=== PATIENT | male | born 1960 | race Caucasian/White ===

== ENCOUNTER 2016-12-06 22:42 | Inpatient (IN) | payer MEDICAID ==
[~2016-12-06] VITALS: Ht 200.7 cm; Wt 138.6 kg
[2016-12-07] MEDS ORDERED: HYDROmorphone HCL 2 MG/ML VL IV ONE ×2 (00:15→04:30)
[2016-12-07] MEDS ORDERED: SODIUM CHLORIDE 0.9% 1,000 ML IV ONE (00:15)
[2016-12-07] MEDS ORDERED: ONDANSETRON HCL 4 MG/2 ML VIAL IV ONE ×2 (00:15→04:30)
[2016-12-07 00:18] LABS: Basophils # (auto) 0.5 uL; Basophils % (auto) 2.6 % (0.0-2.0); DEFINITIVE VIEW TRANSMISSION; Eosinophils # (auto) 0 uL; Eosinophils % (auto) 0.2 % (0.0-7.0); Hematocrit 44.9 % (41.0-53.0); Hemoglobin 14.8 g/dL (13.5-17.5); Lymphocytes # (auto) 1.9 uL; Lymphocytes % (auto) 10.2 % (10.0-50.0); Mean Corpuscular Hemoglobin 29.2 pg (28.0-32.0); Mean Corpuscular Hgb Conc. 32.8 g/dL (32.0-36.0); Mean Platelet Volume 9.6 fL (7.4-10.4); Monocytes # (auto) 1.8 uL; Monocytes % (auto) 9.7 % (0.0-12.0); Neutrophils # (auto) 14.7 uL; Neutrophils % (auto) 77.3 % (37.0-80.0); Platelet Count (auto) 248 10^3/uL (140-450); Red Cell Distribution Width 12.1 % (11.6-16.0); SUSPECT VIEW TRANSMISSION; White Blood Cell 18.9 10^3/uL (4.4-10.8)
[2016-12-07 00:35] LABS: Albumin 2.8 g/dL (3.4-5.0); BUN/Creatinine Ratio 14.2; Calcium 9.4 mg/dL (8.5-10.1); Potassium 4.1 mmol/L (3.5-5.1)
[2016-12-07 00:37] LABS: Bilirubin, Total 0.5 mg/dL (0.2-1.0)
[2016-12-07] MEDS ORDERED: VANCOMYCIN 1GM/250ML D5W 250 ML IV ONE (00:45)
[2016-12-07] MEDS ORDERED: cefTRIAXone 1GM/50ML D5W 50 ML IV ONE (00:45)
[2016-12-07] MEDS ORDERED: ACETAMINOPHEN 325 MG TAB PO ONE (00:45)
[2016-12-07] MEDS ORDERED: cefTRIAXone SOD 1,000 MG VL ONE (00:50)
[2016-12-07] MEDS ORDERED: LACTULOSE 20Gm/30ML SOLN PO PRN (06:45)
[2016-12-07] MEDS ORDERED: ACETAMINOPHEN 500 MG TAB PO PRN (06:45)
[2016-12-07] MEDS ORDERED: TEMAZEPAM 15 MG CAP PO PRN (06:45)
[2016-12-07] MEDS ORDERED: PROCHLORPERAZINE EDISYLATE 5 MG/ML 2ML VIAL IV PRN (06:45)
[2016-12-07] MEDS ORDERED: DEXTROSE (50%) 50ML SYRG IV PRN (06:45)
[2016-12-07] MEDS ORDERED: LORazepam 0.5 MG TAB PO PRN (06:45)
[2016-12-07] MEDS ORDERED: HYDROcodone-ACET 5/325MG TAB PO PRN (06:45)
[2016-12-07] MEDS ORDERED: MORPHINE SULF INJ 2 MG/ML SYRINGE 1ML IV PRN (06:45)
[2016-12-07] MEDS: InsuLIN REG 1unit/0.01ml Soln (100units/ml) SC SCH ×4 (07:39→21:51)
[2016-12-07] MEDS: ACCU-CHEK COMFORT CURVE STRIP VI SCH ×4 (07:39→21:50)
[2016-12-07] MEDS: SODIUM CHLORIDE 0.9% 1,000 ML IV SCH ×2 (07:40→17:19)
[2016-12-07 08:00] VITALS: BP 124/72
[2016-12-07 08:30] VITALS: BP 124/72
[2016-12-07] MEDS: cefTRIAXone 1GM/50ML D5W 50 ML IV SCH (09:06)
[2016-12-07] MEDS: ENOXAPARIN SOD 40 MG/0.4 ML SYRINGE SC SCH (09:06)
[2016-12-07 12:43] VITALS: BP 119/72
[2016-12-07] MEDS: CLINDAMYCIN 600MG IV 50 ML IV SCH ×2 (13:25→21:50)
[2016-12-07 13:50] LABS: Urine Bilirubin Negative (Negative); Urine Blood TRACE /uL (Negative); Urine Color Yellow (Yellow); Urine Glucose Normal (Normal); Urine Ketone Negative (Negative); Urine Mucus FEW (None Seen); Urine Nitrite Negative (Negative); Urine RBC 4 /hpf (0 - 3); Urine Squamous Epithelial Cell FEW /hpf (<5); Urine Urobilinogen Normal (Negative)
[2016-12-07 15:40] LABS: INR 1.13 (0.9-1.15); Prothrombin Time 12.2 sec (9.37-12.3)
[2016-12-07] MEDS: HYDROmorphone HCL 2 MG/ML VL IV PRN ×2 (15:59→21:09)
[2016-12-07 17:00] VITALS: BP 136/75
[2016-12-07 21:30] VITALS: BP 117/66
[2016-12-08] MEDS: SODIUM CHLORIDE 0.9% 1,000 ML IV SCH ×2 (02:17→12:42)
[2016-12-08] MEDS: HYDROmorphone HCL 2 MG/ML VL IV PRN ×5 (02:18→21:37)
[2016-12-08 05:00] VITALS: BP 117/74
[2016-12-08] MEDS: InsuLIN REG 1unit/0.01ml Soln (100units/ml) SC SCH ×4 (06:20→22:35)
[2016-12-08] MEDS: CLINDAMYCIN 600MG IV 50 ML IV SCH ×2 (06:20→12:43)
[2016-12-08] MEDS: ACCU-CHEK COMFORT CURVE STRIP VI SCH ×4 (06:20→21:37)
[2016-12-08 06:31] LABS: Basophils # (auto) 0 uL; Basophils % (auto) 0.3 % (0.0-2.0); Eosinophils # (auto) 0.1 uL; Eosinophils % (auto) 0.6 % (0.0-7.0); Hematocrit 37.2 % (41.0-53.0); Hemoglobin 12.2 g/dL (13.5-17.5); Lymphocytes # (auto) 1.3 uL; Lymphocytes % (auto) 9.7 % (10.0-50.0); Mean Corpuscular Hemoglobin 29.5 pg (28.0-32.0); Mean Corpuscular Hgb Conc. 32.8 g/dL (32.0-36.0); Mean Corpuscular Volume 89.9 fL (80.0-100.0); Mean Platelet Volume 9.6 fL (7.4-10.4); Monocytes # (auto) 1.4 uL; Monocytes % (auto) 10.7 % (0.0-12.0); Neutrophils # (auto) 10.4 uL; Neutrophils % (auto) 78.7 % (37.0-80.0); Platelet Count (auto) 216 10^3/uL (140-450); Red Cell Distribution Width 13.6 % (11.6-16.0); White Blood Cell 13.2 10^3/uL (4.4-10.8)
[2016-12-08 07:14] LABS: Albumin 2.3 g/dL (3.4-5.0); Bilirubin, Total 0.3 mg/dL (0.2-1.0); Calcium 8.1 mg/dL (8.5-10.1); Potassium 4.6 mmol/L (3.5-5.1); Total Protein 6.7 g/dL (6.4-8.2)
[2016-12-08 07:30] VITALS: BP 124/72
[2016-12-08 08:43] VITALS: BP 155/86
[2016-12-08] MEDS: cefTRIAXone 1GM/50ML D5W 50 ML IV SCH (09:59)
[2016-12-08] MEDS: ENOXAPARIN SOD 40 MG/0.4 ML SYRINGE SC SCH (09:59)
[2016-12-08 13:00] VITALS: BP 126/89
[2016-12-08 17:00] VITALS: BP 125/81
[2016-12-08] MEDS ORDERED: VANCOMYCIN PER PHARMACY 0 MG IV SCH (17:00)
[2016-12-08] MEDS: VANCOMYCIN 1,500 MG in D5W 5% 250 ML IV SCH (21:37)
[2016-12-08 22:00] VITALS: BP 129/86
[2016-12-09] VITALS (8 sets, daily range): BP systolic 128–167; BP diastolic 66–103
[2016-12-09] MEDS: HYDROmorphone HCL 2 MG/ML VL IV PRN ×5 (01:29→21:51)
[2016-12-09] MEDS: SODIUM CHLORIDE 0.9% 1,000 ML IV SCH ×3 (01:30→18:05)
[2016-12-09 06:18] LABS: Basophils # (auto) 0 uL; Basophils % (auto) 0.3 % (0.0-2.0); Eosinophils # (auto) 0.4 uL; Eosinophils % (auto) 4.9 % (0.0-7.0); Hematocrit 35.8 % (41.0-53.0); Hemoglobin 11.9 g/dL (13.5-17.5); Lymphocytes # (auto) 1.2 uL; Lymphocytes % (auto) 13.7 % (10.0-50.0); Mean Corpuscular Hemoglobin 29.8 pg (28.0-32.0); Mean Corpuscular Hgb Conc. 33.4 g/dL (32.0-36.0); Mean Corpuscular Volume 89.3 fL (80.0-100.0); Mean Platelet Volume 9.1 fL (7.4-10.4); Monocytes # (auto) 0.9 uL; Monocytes % (auto) 10.4 % (0.0-12.0); Neutrophils # (auto) 6.4 uL; Neutrophils % (auto) 70.7 % (37.0-80.0); Platelet Count (auto) 235 10^3/uL (140-450); Red Cell Distribution Width 13.6 % (11.6-16.0)
[2016-12-09 06:45] LABS: BUN/Creatinine Ratio 22.6; Calcium 8.1 mg/dL (8.5-10.1); Potassium 4.3 mmol/L (3.5-5.1)
[2016-12-09] MEDS: ACCU-CHEK COMFORT CURVE STRIP VI SCH ×4 (06:49→21:59)
[2016-12-09] MEDS: VANCOMYCIN 1,500 MG in D5W 5% 250 ML IV SCH ×2 (06:49→18:13)
[2016-12-09] MEDS: InsuLIN REG 1unit/0.01ml Soln (100units/ml) SC SCH ×4 (06:52→22:00)
[2016-12-09] MEDS ORDERED: CEFTRIAXONE SODIUM 2 GM in D5W 5% 50 ML IV SCH (10:00)
[2016-12-09] MEDS: ENOXAPARIN SOD 40 MG/0.4 ML SYRINGE SC SCH (13:32)
[2016-12-10] MEDS: HYDROmorphone HCL 2 MG/ML VL IV PRN ×4 (02:14→20:09)
[2016-12-10 05:14] VITALS: BP 134/75
[2016-12-10] MEDS: SODIUM CHLORIDE 0.9% 1,000 ML IV SCH ×2 (05:27→14:42)
[2016-12-10] MEDS: ACCU-CHEK COMFORT CURVE STRIP VI SCH ×4 (06:18→21:38)
[2016-12-10] MEDS: InsuLIN REG 1unit/0.01ml Soln (100units/ml) SC SCH ×4 (06:24→21:39)
[2016-12-10 06:30] LABS: Basophils # (auto) 0 uL; Basophils % (auto) 0.3 % (0.0-2.0); Eosinophils # (auto) 0.4 uL; Eosinophils % (auto) 5.4 % (0.0-7.0); Hematocrit 35.9 % (41.0-53.0); Hemoglobin 11.9 g/dL (13.5-17.5); Lymphocytes # (auto) 1.1 uL; Lymphocytes % (auto) 15.7 % (10.0-50.0); Mean Corpuscular Hemoglobin 29.5 pg (28.0-32.0); Mean Corpuscular Hgb Conc. 33.2 g/dL (32.0-36.0); Mean Corpuscular Volume 88.8 fL (80.0-100.0); Mean Platelet Volume 9.1 fL (7.4-10.4); Monocytes # (auto) 0.8 uL; Monocytes % (auto) 10.5 % (0.0-12.0); Neutrophils # (auto) 4.9 uL; Neutrophils % (auto) 68.1 % (37.0-80.0); Platelet Count (auto) 254 10^3/uL (140-450); Red Cell Distribution Width 12.9 % (11.6-16.0); White Blood Cell 7.2 10^3/uL (4.4-10.8)
[2016-12-10 06:53] LABS: Potassium 4.1 mmol/L (3.5-5.1)
[2016-12-10 07:00] LABS: Albumin 2.2 g/dL (3.4-5.0); BUN/Creatinine Ratio 19.5; Bilirubin, Total 0.4 mg/dL (0.2-1.0); Calcium 7.9 mg/dL (8.5-10.1); Total Protein 6.3 g/dL (6.4-8.2)
[2016-12-10] MEDS: VANCOMYCIN 1,500 MG in D5W 5% 250 ML IV SCH ×2 (08:09→18:44)
[2016-12-10 09:00] VITALS: BP 143/91
[2016-12-10] MEDS: ENOXAPARIN SOD 40 MG/0.4 ML SYRINGE SC SCH (10:00)
[2016-12-10 10:21] LABS: INR 0.99 (0.9-1.15); Partial Thromboplastin Time 28.7 sec (22.64-33.71); Prothrombin Time 10.7 sec (9.37-12.3)
[2016-12-10] MEDS: CEFTRIAXONE SODIUM 2 GM in D5W 5% 50 ML IV SCH (10:51)
[2016-12-10 13:00] VITALS: BP 134/73
[2016-12-10] MEDS ORDERED: ceFAZolin 1GM/50ML D5W 50 ML IV ONE (14:05)
[2016-12-10] MEDS ORDERED: PROPOFOL 10 MG/ML 20 ML IV ONE (15:04)
[2016-12-10] MEDS ORDERED: SODIUM CHLORIDE LOCK 20 ML ONE (15:04)
[2016-12-10] MEDS ORDERED: MIDAZOLAM HCL 1MG/1ML-2 ML VIAL ONE (15:04)
[2016-12-10] MEDS ORDERED: SUCCINYLCHOLINE CHLORIDE 20 MG/ML 10ML VIAL IV ONE (15:10)
[2016-12-10] MEDS ORDERED: fentaNYL CITRATE 100 MCG/2 ML VL ONE (15:37)
[2016-12-10] MEDS ORDERED: ACCU-CHEK COMFORT CURVE STRIP VI ONE (15:45)
[2016-12-10] MEDS ORDERED: METOCLOPRAMIDE HCL 5MG/ml INJ 2ml VIAL IV ONE (15:45)
[2016-12-10] MEDS ORDERED: HYDROmorphone HCL 2 MG/ML VL IV PRN (15:45)
[2016-12-10] MEDS ORDERED: LISI10TA6 PO (18:05)
[2016-12-10] MEDS ORDERED: GLIM4TAB42 PO (18:05)
[2016-12-10 22:00] VITALS: BP 153/93
[2016-12-11] MEDS: SODIUM CHLORIDE 0.9% 1,000 ML IV SCH ×4 (00:42→21:53)
[2016-12-11] MEDS: HYDROmorphone HCL 2 MG/ML VL IV PRN ×6 (01:04→20:48)
[2016-12-11 05:00] VITALS: BP 158/97
[2016-12-11] MEDS: VANCOMYCIN 1,500 MG in D5W 5% 250 ML IV SCH ×2 (06:27→18:52)
[2016-12-11] MEDS: ACCU-CHEK COMFORT CURVE STRIP VI SCH ×4 (06:27→21:46)
[2016-12-11] MEDS: InsuLIN REG 1unit/0.01ml Soln (100units/ml) SC SCH ×4 (06:35→21:46)
[2016-12-11] MEDS: ENOXAPARIN SOD 40 MG/0.4 ML SYRINGE SC SCH (09:43)
[2016-12-11] MEDS: CEFTRIAXONE SODIUM 2 GM in D5W 5% 50 ML IV SCH (09:44)
[2016-12-11 10:56] VITALS: BP 155/78
[2016-12-11] MEDS ORDERED: LIDOCAINE 1% HCL (LOCAL ANESTH.) INJ 20ML MDV ID ONE (11:15)
[2016-12-11 15:18] VITALS: BP 150/9
[2016-12-11 17:39] VITALS: BP 167/80
[2016-12-11 21:34] VITALS: BP 157/94
[2016-12-11] MEDS: SODIUM CHLOR 0.9% PF (SALINE LOCK) 10ML VIAL IV SCH (21:46)
[2016-12-12] MEDS: HYDROmorphone HCL 2 MG/ML VL IV PRN ×6 (00:57→23:55)
[2016-12-12 05:27] VITALS: BP 153/80
[2016-12-12] MEDS: VANCOMYCIN 1,500 MG in D5W 5% 250 ML IV SCH ×2 (06:33→18:24)
[2016-12-12] MEDS: InsuLIN REG 1unit/0.01ml Soln (100units/ml) SC SCH ×4 (06:48→21:40)
[2016-12-12] MEDS: ACCU-CHEK COMFORT CURVE STRIP VI SCH ×4 (06:48→21:40)
[2016-12-12 09:00] VITALS: BP 165/96
[2016-12-12] MEDS: ENOXAPARIN SOD 40 MG/0.4 ML SYRINGE SC SCH (09:23)
[2016-12-12] MEDS: SODIUM CHLOR 0.9% PF (SALINE LOCK) 10ML VIAL IV SCH ×2 (09:23→21:40)
[2016-12-12] MEDS: CEFTRIAXONE SODIUM 2 GM in D5W 5% 50 ML IV SCH (10:07)
[2016-12-12] MEDS ORDERED: LISINOPRIL 10 MG TAB PO ONE (12:00)
[2016-12-12 12:26] VITALS: BP 132/78
[2016-12-12 13:00] VITALS: BP 132/78
[2016-12-12 17:00] VITALS: BP 157/99
[2016-12-12 21:51] VITALS: BP 161/101
[2016-12-12] MEDS: amLODIPine BESYLATE 5 MG TAB PO SCH (22:46)
[2016-12-13] MEDS: HYDROmorphone HCL 2 MG/ML VL IV PRN ×5 (04:07→20:35)
[2016-12-13 04:43] VITALS: BP 164/103
[2016-12-13] MEDS: ACCU-CHEK COMFORT CURVE STRIP VI SCH ×4 (06:21→21:50)
[2016-12-13] MEDS: VANCOMYCIN 1,500 MG in D5W 5% 250 ML IV SCH ×2 (06:21→18:51)
[2016-12-13] MEDS: InsuLIN REG 1unit/0.01ml Soln (100units/ml) SC SCH ×4 (06:35→22:01)
[2016-12-13 06:40] LABS: BUN/Creatinine Ratio 14.7; Calcium 8.3 mg/dL (8.5-10.1); Potassium 3.9 mmol/L (3.5-5.1)
[2016-12-13] MEDS: LISINOPRIL 10 MG TAB PO SCH (09:57)
[2016-12-13] MEDS: SODIUM CHLOR 0.9% PF (SALINE LOCK) 10ML VIAL IV SCH ×2 (09:58→21:50)
[2016-12-13] MEDS: ENOXAPARIN SOD 40 MG/0.4 ML SYRINGE SC SCH (09:58)
[2016-12-13] MEDS: amLODIPine BESYLATE 5 MG TAB PO SCH (09:58)
[2016-12-13] MEDS: CEFTRIAXONE SODIUM 2 GM in D5W 5% 50 ML IV SCH (10:07)
[2016-12-13 17:00] VITALS: BP 158/96
[2016-12-13] MEDS: Boost Glucose Control 8 Ounces PO SCH ×2 (17:51→21:50)
[2016-12-13 22:00] VITALS: BP 166/80
[2016-12-14] MEDS: HYDROmorphone HCL 2 MG/ML VL IV PRN ×6 (00:38→21:46)
[2016-12-14 05:00] VITALS: BP 146/77
[2016-12-14] MEDS: Boost Glucose Control 8 Ounces PO SCH ×4 (06:00→22:00)
[2016-12-14] MEDS: ACCU-CHEK COMFORT CURVE STRIP VI SCH ×4 (06:21→21:55)
[2016-12-14] MEDS: InsuLIN REG 1unit/0.01ml Soln (100units/ml) SC SCH ×4 (06:22→21:59)
[2016-12-14] MEDS: VANCOMYCIN 1,500 MG in D5W 5% 250 ML IV SCH ×2 (06:23→18:46)
[2016-12-14 06:41] LABS: Basophils # (auto) 0.1 uL; Basophils % (auto) 1.2 % (0.0-2.0); Eosinophils # (auto) 0.5 uL; Eosinophils % (auto) 5.8 % (0.0-7.0); Hematocrit 40.1 % (41.0-53.0); Hemoglobin 13.5 g/dL (13.5-17.5); Lymphocytes # (auto) 2.1 uL; Lymphocytes % (auto) 24.9 % (10.0-50.0); Mean Corpuscular Hemoglobin 29.7 pg (28.0-32.0); Mean Corpuscular Hgb Conc. 33.7 g/dL (32.0-36.0); Mean Corpuscular Volume 88.1 fL (80.0-100.0); Mean Platelet Volume 8.5 fL (7.4-10.4); Monocytes # (auto) 0.7 uL; Monocytes % (auto) 8.1 % (0.0-12.0); Neutrophils # (auto) 4.9 uL; Platelet Count (auto) 363 10^3/uL (140-450); Red Cell Distribution Width 12.8 % (11.6-16.0); White Blood Cell 8.2 10^3/uL (4.4-10.8)
[2016-12-14 07:02] LABS: Albumin 2.3 g/dL (3.4-5.0); BUN/Creatinine Ratio 14.5; Calcium 8.7 mg/dL (8.5-10.1)
[2016-12-14 07:04] LABS: Bilirubin, Total 0.2 mg/dL (0.2-1.0); Total Protein 6.9 g/dL (6.4-8.2)
[2016-12-14 09:00] VITALS: BP 161/98
[2016-12-14] MEDS: ENOXAPARIN SOD 40 MG/0.4 ML SYRINGE SC SCH (09:08)
[2016-12-14] MEDS: amLODIPine BESYLATE 5 MG TAB PO SCH (09:08)
[2016-12-14] MEDS: LISINOPRIL 10 MG TAB PO SCH (09:09)
[2016-12-14] MEDS: SODIUM CHLOR 0.9% PF (SALINE LOCK) 10ML VIAL IV SCH ×2 (09:09→22:00)
[2016-12-14] MEDS ORDERED: cloNIDine HCL 0.1 MG TAB PO PRN (10:30)
[2016-12-14] MEDS: CEFTRIAXONE SODIUM 2 GM in D5W 5% 50 ML IV SCH (10:47)
[2016-12-14 13:00] VITALS: BP 135/79
[2016-12-14 17:00] VITALS: BP 154/86
[2016-12-14 22:00] VITALS: BP 146/76
[2016-12-15] MEDS: HYDROmorphone HCL 2 MG/ML VL IV PRN ×3 (02:14→11:14)
[2016-12-15 05:00] VITALS: BP 159/99
[2016-12-15] MEDS: Boost Glucose Control 8 Ounces PO SCH ×2 (05:18→12:00)
[2016-12-15 05:24] LABS: Basophils # (auto) 0.3 uL; Basophils % (auto) 3.5 % (0.0-2.0); DEFINITIVE VIEW TRANSMISSION; Eosinophils # (auto) 0.5 uL; Eosinophils % (auto) 4.8 % (0.0-7.0); Hematocrit 41.8 % (41.0-53.0); Lymphocytes # (auto) 2.5 uL; Lymphocytes % (auto) 26.4 % (10.0-50.0); Mean Corpuscular Hemoglobin 29.5 pg (28.0-32.0); Mean Corpuscular Hgb Conc. 33.4 g/dL (32.0-36.0); Mean Corpuscular Volume 88.3 fL (80.0-100.0); Mean Platelet Volume 8.5 fL (7.4-10.4); Monocytes # (auto) 0.7 uL; Monocytes % (auto) 7.9 % (0.0-12.0); Neutrophils # (auto) 5.4 uL; Neutrophils % (auto) 57.4 % (37.0-80.0); Platelet Count (auto) 363 10^3/uL (140-450); Red Cell Distribution Width 12.7 % (11.6-16.0); SUSPECT VIEW TRANSMISSION; White Blood Cell 9.4 10^3/uL (4.4-10.8)
[2016-12-15] MEDS: InsuLIN REG 1unit/0.01ml Soln (100units/ml) SC SCH ×2 (07:10→11:35)
[2016-12-15] MEDS: VANCOMYCIN 1,500 MG in D5W 5% 250 ML IV SCH (07:10)
[2016-12-15] MEDS: ACCU-CHEK COMFORT CURVE STRIP VI SCH ×2 (07:10→11:35)
[2016-12-15 07:56] LABS: Albumin 2.5 g/dL (3.4-5.0); BUN/Creatinine Ratio 16.5; Bilirubin, Total 0.2 mg/dL (0.2-1.0); Potassium 4.1 mmol/L (3.5-5.1); Total Protein 7.4 g/dL (6.4-8.2)
[2016-12-15 09:00] VITALS: BP 160/95
[2016-12-15] MEDS: LISINOPRIL 10 MG TAB PO SCH (09:23)
[2016-12-15] MEDS: ENOXAPARIN SOD 40 MG/0.4 ML SYRINGE SC SCH (09:23)
[2016-12-15] MEDS: SODIUM CHLOR 0.9% PF (SALINE LOCK) 10ML VIAL IV SCH (09:24)
[2016-12-15] MEDS: amLODIPine BESYLATE 5 MG TAB PO SCH (09:24)
[2016-12-15] MEDS: CEFTRIAXONE SODIUM 2 GM in D5W 5% 50 ML IV SCH (11:00)
[2016-12-15 11:53] VITALS: BP 160/95
[2016-12-15 13:00] VITALS: BP 151/86
== END 2016-12-15 17:40 | disposition home or self-care (01) | DRG 314 ==
LOC: ER 22:43 → TELE 22:44 → TELE-CENTR 12-07 08:07 → CENTRAL 12-07 08:37
PROVIDERS: ADMIT Internal Medicine; ATTEND Internal Medicine Pulmonary Disease
PROC: 0HRMXK3 Replacement of Right Foot Skin with Nonautologous Tissue Substitute, Full Thickness, External Approach (ICD-10-PCS; 2016-12-10)
PROC: 0QBN0ZZ Excision of Right Metatarsal, Open Approach (ICD-10-PCS; principal; 2016-12-10 15:15)
PROC: 05H633Z Insertion of Infusion Device into Left Subclavian Vein, Percutaneous Approach (ICD-10-PCS; 2016-12-11)
DX: E11.621 Type 2 diabetes mellitus with foot ulcer (principal); M86.8X7 Other osteomyelitis, ankle and foot; N17.9 Acute kidney failure, unspecified; E11.21 Type 2 diabetes mellitus with diabetic nephropathy; E11.52 Type 2 diabetes mellitus with diabetic peripheral angiopathy with gangrene; E11.40 Type 2 diabetes mellitus with diabetic neuropathy, unspecified; E11.69 Type 2 diabetes mellitus with other specified complication; L03.115 Cellulitis of right lower limb; E44.1 Mild protein-calorie malnutrition; L97.519 Non-pressure chronic ulcer of other part of right foot with unspecified severity; E78.5 Hyperlipidemia, unspecified; E66.9 Obesity, unspecified; N18.2 Chronic kidney disease, stage 2 (mild); E11.65 Type 2 diabetes mellitus with hyperglycemia; I12.9 Hypertensive chronic kidney disease with stage 1 through stage 4 chronic kidney disease, or unspecified chronic kidney disease; E11.22 Type 2 diabetes mellitus with diabetic chronic kidney disease; Z90.49 Acquired absence of other specified parts of digestive tract; Z82.49 Family history of ischemic heart disease and other diseases of the circulatory system; Z83.3 Family history of diabetes mellitus; Z89.512 Acquired absence of left leg below knee; Z68.34 Body mass index [BMI] 34.0-34.9, adult; Z79.4 Long term (current) use of insulin; Z89.421 Acquired absence of other right toe(s)
CPT/HCPCS: 36415; 36569; 71010; 73630; 73700; 78315; 80048; 80053; 80061; 80202; 81001; 82962; 83036; 83605; 85025; 85610; 85652; 85730; 86850; 86870; 86900; 86901; 87040; 87070; 87075; 87205; 93005; 93926; 96365; 96367; 96375; 96376; J0330; J0690; J0696; J1815; J2250; J2405; J2704; J3490; J7060

== ENCOUNTER 2021-01-28 01:57 | Inpatient (IN) | payer MEDICAID ==
[~2021-01-28] VITALS: Ht 182.9 cm; Wt 112.8 kg
[~2021-01-28 01:57] MED LIST: GLIM4TAB42 PO; LISI-716 PO
[2021-01-28 02:57] LABS: Basophils # (auto) 0.1 10 ^3/uL (0-0.2); Basophils % (auto) 0.5 % (0.0-2.0); Eosinophils # (auto) 0.3 10 ^3/uL (0-0.8); Eosinophils % (auto) 2.7 % (0.0-7.0); Hematocrit 32.9 % (41.0-53.0); Lymphocytes # (auto) 0.3 10 ^3/uL (0.4-5.4); Lymphocytes % (auto) 3.4 % (10.0-50.0); Mean Corpuscular Hemoglobin 28.6 pg (28.0-32.0); Mean Corpuscular Hgb Conc. 33.4 g/dL (32.0-36.0); Mean Corpuscular Volume 85.7 fL (80.0-100.0); Monocytes # (auto) 0.1 10 ^3/uL (0-1.3); Monocytes % (auto) 1.2 % (0.0-12.0); Neutrophils # (auto) 9.3 10 ^3/uL (1.6-8.6); Neutrophils % (auto) 92.2 % (37.0-80.0); Platelet Count (auto) 259 10^3/uL (140-450); Red Blood Cells 3.84 10^6/uL (4.5-5.90); Red Cell Distribution Width 15.3 % (11.8-14.3); White Blood Cell 10.1 10^3/uL (4.4-10.8)
[2021-01-28 03:08] LABS: INR 1.1 (0.9-1.15)
[2021-01-28 03:13] LABS: Albumin 2.4 g/dL (3.4-5.0); BUN/Creatinine Ratio 18.1; Potassium 4.1 mmol/L (3.5-5.1)
[2021-01-28 03:17] LABS: Bilirubin, Total 0.4 mg/dL (0.2-1.0)
[2021-01-28 03:50] LABS: CRP High Sensitivity 7.39 mg/dL (< 0.3)
[2021-01-28] MEDS ORDERED: VANCOMYCIN 1GM/250ML 250 ML IV ONE (05:00)
[2021-01-28] MEDS ORDERED: ASPirin 325 MG TAB PO ONE (05:00)
[2021-01-28] MEDS ORDERED: NITROGLYCERIN 0.4 MG SL TAB SL PRN (09:30)
[2021-01-28] MEDS ORDERED: ACETAMINOPHEN 325 MG TAB PO PRN (09:30)
[2021-01-28] MEDS ORDERED: MORPHINE SULF INJ 2 MG/ML SYRINGE 1ML IV PRN ×2 (09:30)
[2021-01-28] MEDS ORDERED: ONDANSETRON HCL 4 MG/2 ML VIAL IV PRN (09:30)
[2021-01-28] MEDS ORDERED: HYDROcodone-ACET 5/325MG TAB PO PRN (09:30)
[2021-01-28] MEDS ORDERED: DEXTROSE (50%) 50ML SYRG IV PRN (09:30)
[2021-01-28 10:57] LABS: Urine Bacteria FEW /hpf (None Seen); Urine Blood 1+ /uL (Negative); Urine Specific Gravity 1.016 (1.001-1.035); Urine WBC 4 /hpf (0 - 3)
[2021-01-28] MEDS: ACCU-CHEK COMFORT CURVE STRIP VI SCH ×3 (12:33→22:49)
[2021-01-28] MEDS: PIPERACILLIN-TAZOB 3.375GM 100 ML IV SCH ×2 (12:33→17:25)
[2021-01-28] MEDS: InsuLIN REG 1unit/0.01ml Soln (100units/ml) SC SCH ×3 (12:34→22:50)
[2021-01-28 17:00] VITALS: BP 128/75
[2021-01-28] MEDS ORDERED: AMLO-489 PO (19:11)
[2021-01-28] MEDS ORDERED: DULO30CA84 PO (19:11)
[2021-01-28] MEDS ORDERED: ROSU1TAB15 PO (19:11)
[2021-01-28] MEDS ORDERED: INSU1INJ19 SC (19:11)
[2021-01-28] MEDS ORDERED: ATOR-47 PO (19:11)
[2021-01-28] MEDS ORDERED: GLIP5TAB12 PO (19:11)
[2021-01-28] MEDS ORDERED: PROP10TA57 PO (19:11)
[2021-01-28] MEDS ORDERED: CARV6.2551 PO (19:11)
[2021-01-28] MEDS ORDERED: METH5T PO (19:11)
[2021-01-28] MEDS ORDERED: ASPI-487 PO (19:11)
[2021-01-28 22:00] VITALS: BP 107/46
[2021-01-29] MEDS: PIPERACILLIN-TAZOB 3.375GM 100 ML IV SCH ×4 (00:30→17:20)
[2021-01-29 05:00] VITALS: BP 120/76
[2021-01-29] MEDS: ACCU-CHEK COMFORT CURVE STRIP VI SCH ×3 (06:28→17:00)
[2021-01-29] MEDS: InsuLIN REG 1unit/0.01ml Soln (100units/ml) SC SCH ×3 (06:30→17:00)
[2021-01-29 09:02] VITALS: BP 98/62
[2021-01-29 13:00] VITALS: BP 105/64
== END 2021-01-29 18:03 | disposition home health service (06) | DRG 206 ==
LOC: EDBD 01:57 → ER 01:57 → TELE 09:17 → TELE-WESTW 10:53
PROVIDERS: ADMIT Hospitalist; ATTEND Hospitalist
PROC: 05HY33Z Insertion of Infusion Device into Upper Vein, Percutaneous Approach (ICD-10-PCS; principal; 2021-01-29)
PROC: 05PYX3Z Removal of Infusion Device from Upper Vein, External Approach (ICD-10-PCS; 2021-01-29)
DX: T82.594A Other mechanical complication of infusion catheter, initial encounter (principal); E11.22 Type 2 diabetes mellitus with diabetic chronic kidney disease; E11.69 Type 2 diabetes mellitus with other specified complication; M86.171 Other acute osteomyelitis, right ankle and foot; L03.115 Cellulitis of right lower limb; E44.1 Mild protein-calorie malnutrition; Z20.822 Contact with and (suspected) exposure to COVID-19; I13.0 Hypertensive heart and chronic kidney disease with heart failure and stage 1 through stage 4 chronic kidney disease, or unspecified chronic kidney disease; I50.9 Heart failure, unspecified; N18.9 Chronic kidney disease, unspecified; Y71.2 Prosthetic and other implants, materials and accessory cardiovascular devices associated with adverse incidents; Z79.84 Long term (current) use of oral hypoglycemic drugs; Z89.512 Acquired absence of left leg below knee; Z83.3 Family history of diabetes mellitus; Z79.82 Long term (current) use of aspirin; Z79.899 Other long term (current) drug therapy
CPT/HCPCS: 36415; 71045; 73700; 80053; 80202; 81001; 82962; 83605; 84484; 85025; 85610; 85652; 86141; 87040; 87077; 87081; 87186; 87205; 87426; 93005; 93306; 96365; G0378; J1815; J2543

== ENCOUNTER 2021-03-04 07:54 | Inpatient (IN) | payer MEDICAID ==
[~2021-03-04] VITALS: Ht 200.7 cm; Wt 114.4 kg
[~2021-03-04 07:54] MED LIST changes: +AMLO-489 PO; +ASPI-487 PO; +ATOR-47 PO; +CARV6.2551 PO; +DULO-141 PO; +GLIP5TAB12 PO; +INSU1INJ19 SC; +METH5T PO; +PROP10TA57 PO; +ROSU1TAB15 PO
[2021-03-04 12:01] LABS: Basophils # (auto) 0.2 10 ^3/uL (0-0.2); Basophils % (auto) 1.1 % (0.0-2.0); Eosinophils # (auto) 0.4 10 ^3/uL (0-0.8); Eosinophils % (auto) 2.9 % (0.0-7.0); Hematocrit 35.7 % (41.0-53.0); Hemoglobin 11.9 g/dL (13.5-17.5); Lymphocytes # (auto) 2.4 10 ^3/uL (0.4-5.4); Lymphocytes % (auto) 16.4 % (10.0-50.0); Mean Corpuscular Hemoglobin 28.3 pg (28.0-32.0); Mean Corpuscular Hgb Conc. 33.3 g/dL (32.0-36.0); Monocytes % (auto) 6.8 % (0.0-12.0); Neutrophils # (auto) 10.8 10 ^3/uL (1.6-8.6); Neutrophils % (auto) 72.8 % (37.0-80.0); Nucleated Red Blood Cells % 0.1 %; Red Blood Cells 4.19 10^6/uL (4.5-5.90); White Blood Cell 14.8 10^3/uL (4.4-10.8)
[2021-03-04] MEDS ORDERED: CLINDAMYCIN 600MG IV 50 ML IV ONE (13:30)
[2021-03-04] MEDS ORDERED: cefTRIAXone 1GM/50ML D5W 50 ML IV ONE (13:30)
[2021-03-04 14:22] LABS: Albumin 2.4 g/dL (3.4-5.0); Calcium 8.8 mg/dL (8.5-10.1); Potassium 4.9 mmol/L (3.5-5.1)
[2021-03-04 14:24] LABS: BUN/Creatinine Ratio 23.4
[2021-03-04 14:27] LABS: Bilirubin, Total 0.4 mg/dL (0.2-1.0); Total Protein 7.5 g/dL (6.4-8.2)
[2021-03-04] MEDS ORDERED: ACETAMINOPHEN 325 MG TAB PO PRN (17:30)
[2021-03-04] MEDS ORDERED: DEXTROSE (50%) 50ML SYRG IV PRN (17:30)
[2021-03-04] MEDS ORDERED: PROPRANOLOL HCL 20 MG TAB PO SCH (22:00)
[2021-03-04] MEDS: ACCU-CHEK COMFORT CURVE STRIP VI SCH (23:30)
[2021-03-04] MEDS: ATORVASTATIN 20 MG TAB PO SCH (23:30)
[2021-03-04] MEDS: InsuLIN REG 1unit/0.01ml Soln (100units/ml) SC SCH (23:30)
[2021-03-04] MEDS: CARVEDILOL 3.125 MG TAB PO SCH (23:30)
[2021-03-05] VITALS (8 sets, daily range): BP systolic 101–128; BP diastolic 51–80
[2021-03-05] MEDS: HYDROcodone-ACET 5/325MG TAB PO PRN (05:20)
[2021-03-05] MEDS: InsuLIN REG 1unit/0.01ml Soln (100units/ml) SC SCH ×4 (06:32→22:00)
[2021-03-05] MEDS: ACCU-CHEK COMFORT CURVE STRIP VI SCH ×4 (06:32→22:00)
[2021-03-05] MEDS ORDERED: ADENOSINE 89 MG in GIVE UN-DILUTED 0 ML IV STA (09:23)
[2021-03-05] MEDS: methIMAzole 5 MG TAB PO SCH (10:53)
[2021-03-05] MEDS: cefTRIAXone 1GM/50ML D5W 50 ML IV SCH (10:53)
[2021-03-05] MEDS: ASPirin-EC 81 mg tab PO SCH (10:54)
[2021-03-05] MEDS: LISINOPRIL 10 MG TAB PO SCH (10:54)
[2021-03-05] MEDS: amLODIPine BESYLATE 5 MG TAB PO SCH (17:03)
[2021-03-05] MEDS: CARVEDILOL 3.125 MG TAB PO SCH ×2 (17:03→22:00)
[2021-03-05] MEDS: ATORVASTATIN 20 MG TAB PO SCH (22:00)
[2021-03-06] VITALS (8 sets, daily range): BP systolic 96–142; BP diastolic 66–77
[2021-03-06] MEDS: ACCU-CHEK COMFORT CURVE STRIP VI SCH ×4 (07:00→23:09)
[2021-03-06] MEDS: InsuLIN REG 1unit/0.01ml Soln (100units/ml) SC SCH ×4 (07:00→22:58)
[2021-03-06] MEDS ORDERED: ONDANSETRON HCL 4 MG/2 ML VIAL ONE (07:53)
[2021-03-06] MEDS ORDERED: SODIUM CHLORIDE LOCK 10 ML ONE (07:53)
[2021-03-06] MEDS ORDERED: fentaNYL CITRATE 100 MCG/2 ML VL ONE (07:53)
[2021-03-06] MEDS ORDERED: MIDAZOLAM HCL 2MG/2ML 2ml VIAL (1mg/ml) ONE (07:53)
[2021-03-06] MEDS ORDERED: PROPOFOL 10 MG/ML 20 ML IV ONE (07:53)
[2021-03-06] MEDS ORDERED: LIDOCAINE 2% (LOCAL ANESTH.) PF 5ml SDV ONE ×2 (07:54→10:18)
[2021-03-06 08:37] LABS: INR 1.04 (0.9-1.15); Partial Thromboplastin Time 30.3 sec (23.0-31.2)
[2021-03-06] MEDS: cefTRIAXone 1GM/50ML D5W 50 ML IV SCH ×2 (09:00→18:15)
[2021-03-06] MEDS ORDERED: ceFAZolin 1GM/50ML 100 ML IV ONE (09:26)
[2021-03-06] MEDS ORDERED: HYDROmorphone HCL 2 MG/ML VL IV PRN (09:45)
[2021-03-06] MEDS ORDERED: METOCLOPRAMIDE HCL 5MG/ml INJ 2ml VIAL IV PRN (09:45)
[2021-03-06] MEDS ORDERED: ACCU-CHEK COMFORT CURVE STRIP VI ONE (09:45)
[2021-03-06] MEDS ORDERED: MORPHINE SULFATE 4 MG/ML SYR/VIAL IV PRN (09:45)
[2021-03-06] MEDS: LISINOPRIL 10 MG TAB PO SCH (10:00)
[2021-03-06] MEDS: CARVEDILOL 3.125 MG TAB PO SCH ×2 (10:00→23:05)
[2021-03-06] MEDS: ASPirin-EC 81 mg tab PO SCH (10:00)
[2021-03-06] MEDS ORDERED: VANCOMYCIN 1GM/250ML 250 ML IV ONE (10:00)
[2021-03-06] MEDS: amLODIPine BESYLATE 5 MG TAB PO SCH (10:00)
[2021-03-06] MEDS: methIMAzole 5 MG TAB PO SCH (10:00)
[2021-03-06] MEDS ORDERED: VANCOMYCIN PER PHARMACY 0 MG IV SCH (10:00)
[2021-03-06 11:00] LABS: Basophils # (auto) 0 10 ^3/uL (0-0.2); Basophils % (auto) 0.5 % (0.0-2.0); Eosinophils # (auto) 0.8 10 ^3/uL (0-0.8); Eosinophils % (auto) 9.6 % (0.0-7.0); Hematocrit 34.5 % (41.0-53.0); Hemoglobin 11.7 g/dL (13.5-17.5); Lymphocytes # (auto) 2.2 10 ^3/uL (0.4-5.4); Lymphocytes % (auto) 27.7 % (10.0-50.0); Mean Corpuscular Hemoglobin 28.4 pg (28.0-32.0); Mean Corpuscular Hgb Conc. 33.9 g/dL (32.0-36.0); Mean Corpuscular Volume 83.9 fL (80.0-100.0); Monocytes # (auto) 0.5 10 ^3/uL (0-1.3); Monocytes % (auto) 6.7 % (0.0-12.0); Neutrophils # (auto) 4.3 10 ^3/uL (1.6-8.6); Neutrophils % (auto) 55.5 % (37.0-80.0); Red Blood Cells 4.11 10^6/uL (4.5-5.90); Red Cell Distribution Width 15.4 % (11.8-14.3); White Blood Cell 7.8 10^3/uL (4.4-10.8)
[2021-03-06] MEDS: HYDROcodone-ACET 5/325MG TAB PO PRN (14:25)
[2021-03-06] MEDS: MORPHINE SULFATE INJECTION 2 MG/ML SYRG IV PRN (19:40)
[2021-03-06] MEDS: ATORVASTATIN 20 MG TAB PO SCH (23:08)
[2021-03-07] MEDS: HYDROcodone-ACET 5/325MG TAB PO PRN ×2 (03:15→16:42)
[2021-03-07] MEDS: VANCOMYCIN 1GM/250ML 250 ML IV SCH ×2 (03:35→17:19)
[2021-03-07] MEDS: InsuLIN REG 1unit/0.01ml Soln (100units/ml) SC SCH ×4 (06:39→22:00)
[2021-03-07] MEDS: ACCU-CHEK COMFORT CURVE STRIP VI SCH ×4 (06:40→21:52)
[2021-03-07 06:53] LABS: Basophils # (auto) 0.1 10 ^3/uL (0-0.2); Basophils % (auto) 0.6 % (0.0-2.0); Eosinophils # (auto) 0.5 10 ^3/uL (0-0.8); Hematocrit 32.4 % (41.0-53.0); Hemoglobin 10.9 g/dL (13.5-17.5); Lymphocytes # (auto) 1.6 10 ^3/uL (0.4-5.4); Lymphocytes % (auto) 18.5 % (10.0-50.0); Mean Corpuscular Hgb Conc. 33.5 g/dL (32.0-36.0); Mean Corpuscular Volume 83.5 fL (80.0-100.0); Monocytes # (auto) 0.7 10 ^3/uL (0-1.3); Monocytes % (auto) 8.3 % (0.0-12.0); Neutrophils # (auto) 5.9 10 ^3/uL (1.6-8.6); Neutrophils % (auto) 66.6 % (37.0-80.0); Nucleated Red Blood Cells % 0.3 %; Red Blood Cells 3.88 10^6/uL (4.5-5.90); Red Cell Distribution Width 15.3 % (11.8-14.3); White Blood Cell 8.9 10^3/uL (4.4-10.8)
[2021-03-07 09:00] VITALS: BP 121/72
[2021-03-07] MEDS: ASPirin-EC 81 mg tab PO SCH (09:39)
[2021-03-07] MEDS: methIMAzole 5 MG TAB PO SCH (09:39)
[2021-03-07] MEDS: CARVEDILOL 3.125 MG TAB PO SCH ×2 (09:39→21:52)
[2021-03-07] MEDS: amLODIPine BESYLATE 5 MG TAB PO SCH (09:39)
[2021-03-07] MEDS: LISINOPRIL 10 MG TAB PO SCH (09:40)
[2021-03-07] MEDS: MORPHINE SULFATE INJECTION 2 MG/ML SYRG IV PRN ×2 (12:12→18:54)
[2021-03-07] MEDS: ONDANSETRON HCL 4 MG/2 ML VIAL IV PRN ×2 (12:12→18:54)
[2021-03-07 13:00] VITALS: BP 112/69
[2021-03-07] MEDS ORDERED: HYDR-4902 PO (14:45)
[2021-03-07] MEDS ORDERED: VANC1000 IV (14:45)
[2021-03-07] MEDS ORDERED: CEFT1INJ17 IV (14:45)
[2021-03-07 16:47] VITALS: BP 95/62
[2021-03-07] MEDS: ATORVASTATIN 20 MG TAB PO SCH (21:52)
[2021-03-07 22:30] VITALS: BP 108/70
[2021-03-08] MEDS: MORPHINE SULFATE INJECTION 2 MG/ML SYRG IV PRN (03:17)
[2021-03-08] MEDS: ONDANSETRON HCL 4 MG/2 ML VIAL IV PRN (03:18)
[2021-03-08 05:16] VITALS: BP 106/61
[2021-03-08] MEDS: ACCU-CHEK COMFORT CURVE STRIP VI SCH ×3 (06:23→17:00)
[2021-03-08] MEDS: InsuLIN REG 1unit/0.01ml Soln (100units/ml) SC SCH ×3 (06:24→17:00)
[2021-03-08 09:00] VITALS: BP 100/63
[2021-03-08] MEDS: amLODIPine BESYLATE 5 MG TAB PO SCH (09:12)
[2021-03-08] MEDS: ASPirin-EC 81 mg tab PO SCH (09:12)
[2021-03-08] MEDS: methIMAzole 5 MG TAB PO SCH (09:12)
[2021-03-08] MEDS: CARVEDILOL 3.125 MG TAB PO SCH (09:13)
[2021-03-08] MEDS: LISINOPRIL 10 MG TAB PO SCH (09:13)
[2021-03-08] MEDS: cefTRIAXone 1GM/50ML D5W 50 ML IV SCH (09:14)
[2021-03-08] MEDS: VANCOMYCIN 1GM/250ML 250 ML IV SCH (10:15)
[2021-03-08 12:47] VITALS: BP 99/65
[2021-03-08 15:15] VITALS: BP 121/73
== END 2021-03-08 17:20 | disposition home health service (06) | DRG 314 ==
LOC: ER 07:54 → TELE 17:20 → TELE-CENTR 22:38
PROVIDERS: ADMIT Internal Medicine; ATTEND Internal Medicine
PROC: 0QBN0ZZ Excision of Right Metatarsal, Open Approach (ICD-10-PCS; principal; 2021-03-06 10:06)
DX: T87.43 Infection of amputation stump, right lower extremity (principal); I50.23 Acute on chronic systolic (congestive) heart failure; I42.9 Cardiomyopathy, unspecified; E11.621 Type 2 diabetes mellitus with foot ulcer; L03.115 Cellulitis of right lower limb; L97.519 Non-pressure chronic ulcer of other part of right foot with unspecified severity; S91.301A Unspecified open wound, right foot, initial encounter; Z20.822 Contact with and (suspected) exposure to COVID-19; M87.874 Other osteonecrosis, right foot; E11.69 Type 2 diabetes mellitus with other specified complication; I11.0 Hypertensive heart disease with heart failure; E78.5 Hyperlipidemia, unspecified; F32.9 Major depressive disorder, single episode, unspecified; F41.9 Anxiety disorder, unspecified; M86.8X7 Other osteomyelitis, ankle and foot; Y83.8 Other surgical procedures as the cause of abnormal reaction of the patient, or of later complication, without mention of misadventure at the time of the procedure; E05.90 Thyrotoxicosis, unspecified without thyrotoxic crisis or storm; X58.XXXA Exposure to other specified factors, initial encounter; Z83.3 Family history of diabetes mellitus; Z89.512 Acquired absence of left leg below knee; Y93.89 Activity, other specified; Y92.89 Other specified places as the place of occurrence of the external cause; Y99.8 Other external cause status
CPT/HCPCS: 36415; 71045; 73700; 78452; 80053; 80202; 82565; 82962; 83605; 85025; 85049; 85610; 85730; 87040; 87070; 87075; 87077; 87186; 87205; 87426; 93005; 93017; 93926; 96365; 96366; 96368; G0378; J0153; J0690; J0696; J1815; J2001; J2250; J2405; J2704; J3490

== ENCOUNTER 2021-04-23 13:43 | Emergency (ER) | payer MEDICAID ==
[~2021-04-23] VITALS: Ht 182.9 cm; Wt 127.0 kg
[~2021-04-23 13:43] MED LIST changes: +CEFT1INJ17 IV; +HYDR-4902 PO; +VANC1000 IV
[2021-04-23] MEDS ORDERED: SODIUM CHLORIDE 0.9% 1,000 ML IV ONE (14:00)
[2021-04-23 15:35] LABS: Basophils # (auto) 0.1 10 ^3/uL (0-0.2); Basophils % (auto) 0.6 % (0.0-2.0); Eosinophils # (auto) 0.3 10 ^3/uL (0-0.8); Eosinophils % (auto) 2.9 % (0.0-7.0); Hematocrit 37.8 % (41.0-53.0); Hemoglobin 12.7 g/dL (13.5-17.5); Lymphocytes # (auto) 1.3 10 ^3/uL (0.4-5.4); Mean Corpuscular Hemoglobin 28.1 pg (28.0-32.0); Mean Corpuscular Hgb Conc. 33.6 g/dL (32.0-36.0); Mean Corpuscular Volume 83.7 fL (80.0-100.0); Monocytes # (auto) 0.5 10 ^3/uL (0-1.3); Monocytes % (auto) 4.6 % (0.0-12.0); Neutrophils # (auto) 9.4 10 ^3/uL (1.6-8.6); Neutrophils % (auto) 80.9 % (37.0-80.0); Red Blood Cells 4.51 10^6/uL (4.5-5.90); Red Cell Distribution Width 15.7 % (11.8-14.3); White Blood Cell 11.6 10^3/uL (4.4-10.8)
[2021-04-23 15:51] LABS: INR 1.05 (0.9-1.15); Partial Thromboplastin Time 26.4 sec (23.6-33.0)
[2021-04-23 15:52] LABS: Albumin 2.5 g/dL (3.4-5.0); Anion Gap 7 (5-15); Blood Urea Nitrogen 27 mg/dL (7-18); Calcium 8.9 mg/dL (8.5-10.1); Carbon Dioxide 25 mmol/L (21-32); Chloride 108 mmol/L (98-107); Glucose 221 mg/dL (74-106); Potassium 4.4 mmol/L (3.5-5.1); Sodium 140 mmol/L (136-145)
[2021-04-23 15:56] LABS: Lactic Acid w/Reflex 2.8 mmol/L (0.4-2.0)
[2021-04-23 15:59] LABS: Alanine Aminotransferase 18 U/L (16-61); Alkaline Phosphatase 182 U/L (45-117); Aspartate Aminotransferase 13 U/L (15-37); BUN/Creatinine Ratio 15.7; Bilirubin, Total 0.2 mg/dL (0.2-1.0); GFR African American 52 mL/min; GFR Non-African American 43 mL/min; Total Protein 7.1 g/dL (6.4-8.2)
[2021-04-23] MEDS ORDERED: PIPERACILLIN-TAZOB 3.375GM 100 ML IV ONE (17:30)
[2021-04-23 18:00] VITALS: BP 134/83
== END 2021-04-23 19:30 | disposition left against medical advice (07) ==
LOC: EDBD 13:43 → ER 13:43
DX: L03.115 Cellulitis of right lower limb (principal); E11.65 Type 2 diabetes mellitus with hyperglycemia; I10 Essential (primary) hypertension; Z20.822 Contact with and (suspected) exposure to COVID-19; Z53.29 Procedure and treatment not carried out because of patient's decision for other reasons; Z79.4 Long term (current) use of insulin; Z79.899 Other long term (current) drug therapy; Z89.519 Acquired absence of unspecified leg below knee
CPT/HCPCS: 36415; 70450; 71045; 80053; 83605; 84484; 85025; 85610; 85730; 87040; 87426; 93005; 96361; 96365; 99285; J2543; J7030

== ENCOUNTER 2021-05-21 13:41 | Inpatient (IN) | payer MEDICAID ==
[~2021-05-21] VITALS: Ht 200.7 cm; Wt 110.6 kg
[2021-05-21] MEDS ORDERED: MORPHINE SULFATE 4 MG/ML SYR/VIAL IV ONE (14:00)
[2021-05-21] MEDS ORDERED: ONDANSETRON HCL 4 MG/2 ML VIAL IV ONE (14:00)
[2021-05-21] MEDS ORDERED: SODIUM CHLORIDE 0.9% 500 ML IV ONE (14:00)
[2021-05-21 14:38] LABS: Basophils # (auto) 0 10 ^3/uL (0-0.2); Basophils % (auto) 0.4 % (0.0-2.0); Eosinophils # (auto) 0.2 10 ^3/uL (0-0.8); Eosinophils % (auto) 1.9 % (0.0-7.0); Hematocrit 37.9 % (41.0-53.0); Hemoglobin 12.7 g/dL (13.5-17.5); Lymphocytes # (auto) 1.1 10 ^3/uL (0.4-5.4); Lymphocytes % (auto) 9.9 % (10.0-50.0); Mean Corpuscular Hemoglobin 28.1 pg (28.0-32.0); Mean Corpuscular Hgb Conc. 33.6 g/dL (32.0-36.0); Mean Corpuscular Volume 83.5 fL (80.0-100.0); Monocytes # (auto) 0.5 10 ^3/uL (0-1.3); Monocytes % (auto) 4.2 % (0.0-12.0); Neutrophils # (auto) 9.5 10 ^3/uL (1.6-8.6); Neutrophils % (auto) 83.6 % (37.0-80.0); Red Blood Cells 4.54 10^6/uL (4.5-5.90); Red Cell Distribution Width 16.2 % (11.8-14.3); White Blood Cell 11.4 10^3/uL (4.4-10.8)
[2021-05-21 14:48] LABS: INR 1.05 (0.9-1.15); Partial Thromboplastin Time 29.5 sec (23.6-33.0)
[2021-05-21 14:52] LABS: Albumin 2.6 g/dL (3.4-5.0); BUN/Creatinine Ratio 19.2; Calcium 8.8 mg/dL (8.5-10.1); Potassium 4.3 mmol/L (3.5-5.1)
[2021-05-21 14:54] LABS: Bilirubin, Total 0.4 mg/dL (0.2-1.0); Total Protein 8.4 g/dL (6.4-8.2)
[2021-05-21] MEDS ORDERED: CLINDAMYCIN 600MG IV 50 ML IV ONE (15:15)
[2021-05-21] MEDS ORDERED: HYDROcodone-ACET 5/325MG TAB PO PRN (20:00)
[2021-05-21] MEDS ORDERED: ACETAMINOPHEN 325 MG TAB PO PRN (20:00)
[2021-05-21] MEDS ORDERED: VANCOMYCIN PER PHARMACY 0 MG IV SCH (20:00)
[2021-05-21] MEDS ORDERED: NITROGLYCERIN 0.4 MG SL TAB SL PRN (20:00)
[2021-05-21] MEDS ORDERED: DEXTROSE (50%) 50ML SYRG IV PRN (20:00)
[2021-05-21] MEDS: InsuLIN REG 1unit/0.01ml Soln (100units/ml) SC SCH (22:00)
[2021-05-21] MEDS: PIPERACILLIN-TAZOB 3.375GM 100 ML IV SCH (23:59)
[2021-05-21] MEDS: ACCU-CHEK COMFORT CURVE STRIP VI SCH (23:59)
[2021-05-22] MEDS: VANCOMYCIN 1GM/250ML 250 ML IV SCH ×2 (00:24→14:16)
[2021-05-22 05:21] LABS: Basophils # (auto) 0.1 10 ^3/uL (0-0.2); Basophils % (auto) 0.5 % (0.0-2.0); Eosinophils # (auto) 0.2 10 ^3/uL (0-0.8); Eosinophils % (auto) 1.6 % (0.0-7.0); Hematocrit 32.4 % (41.0-53.0); Hemoglobin 10.6 g/dL (13.5-17.5); Lymphocytes # (auto) 0.8 10 ^3/uL (0.4-5.4); Lymphocytes % (auto) 7.6 % (10.0-50.0); Mean Corpuscular Hemoglobin 27.4 pg (28.0-32.0); Mean Corpuscular Hgb Conc. 32.8 g/dL (32.0-36.0); Mean Corpuscular Volume 83.4 fL (80.0-100.0); Monocytes # (auto) 0.8 10 ^3/uL (0-1.3); Monocytes % (auto) 7.3 % (0.0-12.0); Neutrophils # (auto) 8.7 10 ^3/uL (1.6-8.6); Red Blood Cells 3.88 10^6/uL (4.5-5.90); Red Cell Distribution Width 16.4 % (11.8-14.3); White Blood Cell 10.5 10^3/uL (4.4-10.8)
[2021-05-22 05:40] LABS: Albumin 2.1 g/dL (3.4-5.0); Calcium 8.6 mg/dL (8.5-10.1); Magnesium 2.1 mg/dL (1.6-2.6); Potassium 4.4 mmol/L (3.5-5.1)
[2021-05-22 05:44] LABS: Bilirubin, Total 0.4 mg/dL (0.2-1.0); Total Protein 6.5 g/dL (6.4-8.2)
[2021-05-22] MEDS: InsuLIN REG 1unit/0.01ml Soln (100units/ml) SC SCH ×4 (07:00→22:00)
[2021-05-22] MEDS: ACCU-CHEK COMFORT CURVE STRIP VI SCH ×4 (07:04→23:54)
[2021-05-22] MEDS: PIPERACILLIN-TAZOB 3.375GM 100 ML IV SCH (07:05)
[2021-05-22] MEDS: LISINOPRIL 10 MG TAB PO SCH (10:00)
[2021-05-22] MEDS ORDERED: PATIENTS OWN MEDICATION (Carvedilol 1 TAB) PO SCH (10:00)
[2021-05-22] MEDS: ASPirin-EC 81 mg tab PO SCH (10:00)
[2021-05-22] MEDS: glipiZIDE 5 MG TAB PO SCH ×2 (10:00→23:53)
[2021-05-22] MEDS: amLODIPine BESYLATE 5 MG TAB PO SCH (10:00)
[2021-05-22] MEDS: MORPHINE SULFATE INJECTION 2 MG/ML SYRG IV PRN ×3 (10:38→20:17)
[2021-05-22] MEDS: MEROPENEM 1GM IVPB 100 ML IV SCH ×2 (14:00→23:51)
[2021-05-22] MEDS: ONDANSETRON HCL 4 MG/2 ML VIAL IV PRN (20:17)
[2021-05-22] MEDS: SOD CHL 0.45% 1,000 ML IV SCH ×2 (20:17→23:55)
[2021-05-22 21:38] LABS: Urine Bacteria FEW /hpf (None Seen); Urine Blood TRACE /uL (Negative); Urine Specific Gravity 1.019 (1.001-1.035); Urine WBC <1 /hpf (0 - 3)
[2021-05-22 21:45] LABS: Protein, Urine 199.4 mg/dL (0.0-11.9)
[2021-05-22] MEDS: INSULIN LANTUS (GLARGINE) 1 /0.01ml (100units/ml) SC SCH (22:00)
[2021-05-22] MEDS: CARVEDILOL 3.125 MG TAB PO SCH (23:52)
[2021-05-23] MEDS: MORPHINE SULFATE INJECTION 2 MG/ML SYRG IV PRN
[2021-05-23] MEDS: ONDANSETRON HCL 4 MG/2 ML VIAL IV PRN
[2021-05-23] MEDS: SOD CHL 0.45% 1,000 ML IV SCH ×2 (00:34→21:16)
[2021-05-23 03:20] VITALS: BP 149/89
[2021-05-23] MEDS: VANCOMYCIN 1GM/250ML 250 ML IV SCH ×2 (05:40→21:17)
[2021-05-23] MEDS: InsuLIN REG 1unit/0.01ml Soln (100units/ml) SC SCH ×4 (06:30→21:30)
[2021-05-23] MEDS: ACCU-CHEK COMFORT CURVE STRIP VI SCH ×4 (06:31→22:00)
[2021-05-23] MEDS: MEROPENEM 1GM IVPB 100 ML IV SCH ×3 (06:58→22:12)
[2021-05-23 09:00] VITALS: BP 165/76
[2021-05-23] MEDS: ASPirin-EC 81 mg tab PO SCH (10:00)
[2021-05-23] MEDS: LISINOPRIL 10 MG TAB PO SCH (10:00)
[2021-05-23] MEDS: amLODIPine BESYLATE 5 MG TAB PO SCH (10:00)
[2021-05-23] MEDS: glipiZIDE 5 MG TAB PO SCH ×2 (10:00→22:12)
[2021-05-23] MEDS: CARVEDILOL 3.125 MG TAB PO SCH ×2 (10:00→22:13)
[2021-05-23 13:00] VITALS: BP 143/80
[2021-05-23 17:00] VITALS: BP 128/70
[2021-05-23] MEDS: INSULIN LANTUS (GLARGINE) 1 /0.01ml (100units/ml) SC SCH (21:31)
[2021-05-23] MEDS: DAKINS QUARTER STR 0.125% (NaHypochlorite) 473 ML TOPICAL SOL TOP SCH (21:32)
[2021-05-23 22:00] VITALS: BP 149/105
[2021-05-24 05:00] VITALS: BP 151/91
[2021-05-24] MEDS: MEROPENEM 1GM IVPB 100 ML IV SCH ×3 (06:00→22:00)
[2021-05-24] MEDS: InsuLIN REG 1unit/0.01ml Soln (100units/ml) SC SCH ×4 (06:14→22:02)
[2021-05-24] MEDS: ACCU-CHEK COMFORT CURVE STRIP VI SCH ×4 (06:14→22:01)
[2021-05-24 09:00] VITALS: BP 146/87
[2021-05-24] MEDS: glipiZIDE 5 MG TAB PO SCH ×2 (11:07→22:01)
[2021-05-24] MEDS: amLODIPine BESYLATE 5 MG TAB PO SCH (11:08)
[2021-05-24] MEDS: CARVEDILOL 3.125 MG TAB PO SCH ×2 (11:08→22:00)
[2021-05-24] MEDS: DAKINS QUARTER STR 0.125% (NaHypochlorite) 473 ML TOPICAL SOL TOP SCH ×2 (11:08→22:01)
[2021-05-24] MEDS: LISINOPRIL 10 MG TAB PO SCH (11:08)
[2021-05-24] MEDS: ASPirin-EC 81 mg tab PO SCH (11:08)
[2021-05-24] MEDS ORDERED: LIDOCAINE 1% HCL (LOCAL ANESTH.) INJ 20ML MDV ONE (11:39)
[2021-05-24] MEDS ORDERED: BUPIVACAINE HCL 50 ML ONE (11:39)
[2021-05-24] MEDS ORDERED: BUPIVACAINE 0.5% P/F INJ 10 ML VIAL ONE (11:39)
[2021-05-24 13:00] VITALS: BP 158/98
[2021-05-24 16:35] VITALS: BP 152/89
[2021-05-24] MEDS ORDERED: LORazepam 2MG/ML-1ML VIAL IV PRN (17:45)
[2021-05-24 19:56] LABS: Cholesterol 114 mg/dL (< 200); HDL Cholesterol 11 mg/dL (40-59); LDL Cholesterol 69 mg/dL (< 100); Triglycerides 228 mg/dL (< 150)
[2021-05-24] MEDS ORDERED: VANCOMYCIN 1GM/250ML 250 ML IV ONE (20:00)
[2021-05-24 20:01] LABS: Folate (Folic Acid) 10.57 ng/mL (5.38-24)
[2021-05-24 21:56] VITALS: BP 163/84
[2021-05-24] MEDS: SOD CHL 0.45% 1,000 ML IV SCH (21:59)
[2021-05-24] MEDS: ATORVASTATIN 20 MG TAB PO SCH (22:00)
[2021-05-24] MEDS: INSULIN LANTUS (GLARGINE) 1 /0.01ml (100units/ml) SC SCH (22:01)
[2021-05-25 05:00] VITALS: BP 162/107
[2021-05-25] MEDS ORDERED: hydrALAZINE HCL 20 MG/ML VL IV PRN (05:00)
[2021-05-25] MEDS: ACCU-CHEK COMFORT CURVE STRIP VI SCH ×4 (06:33→21:23)
[2021-05-25] MEDS: InsuLIN REG 1unit/0.01ml Soln (100units/ml) SC SCH ×4 (06:33→21:24)
[2021-05-25] MEDS: MEROPENEM 1GM IVPB 100 ML IV SCH ×3 (06:33→21:23)
[2021-05-25 09:00] VITALS: BP 143/83
[2021-05-25] MEDS: ASPirin-EC 81 mg tab PO SCH (10:02)
[2021-05-25] MEDS: glipiZIDE 5 MG TAB PO SCH ×2 (10:03→21:22)
[2021-05-25] MEDS: LISINOPRIL 10 MG TAB PO SCH (10:03)
[2021-05-25] MEDS: CARVEDILOL 3.125 MG TAB PO SCH ×2 (10:04→21:22)
[2021-05-25] MEDS: amLODIPine BESYLATE 5 MG TAB PO SCH (10:04)
[2021-05-25] MEDS: DAKINS QUARTER STR 0.125% (NaHypochlorite) 473 ML TOPICAL SOL TOP SCH ×2 (10:05→21:23)
[2021-05-25 12:00] LABS: Potassium 4.3 mmol/L (3.5-5.1)
[2021-05-25] MEDS ORDERED: VANCOMYCIN 1GM/250ML 250 ML IV SCH (12:00)
[2021-05-25 12:09] LABS: BUN/Creatinine Ratio 23.9
[2021-05-25 12:57] VITALS: BP 136/81
[2021-05-25 17:00] VITALS: BP 138/80
[2021-05-25] MEDS: ATORVASTATIN 20 MG TAB PO SCH (21:22)
[2021-05-25] MEDS: INSULIN LANTUS (GLARGINE) 1 /0.01ml (100units/ml) SC SCH (21:23)
[2021-05-25 22:00] VITALS: BP 137/69
[2021-05-26 05:00] VITALS: BP 143/85
[2021-05-26] MEDS: ACCU-CHEK COMFORT CURVE STRIP VI SCH ×4 (05:49→21:42)
[2021-05-26] MEDS: InsuLIN REG 1unit/0.01ml Soln (100units/ml) SC SCH ×4 (05:49→21:42)
[2021-05-26] MEDS: MEROPENEM 1GM IVPB 100 ML IV SCH ×3 (05:52→21:40)
[2021-05-26 06:44] LABS: Basophils # (auto) 0 10 ^3/uL (0-0.2); Basophils % (auto) 0.6 % (0.0-2.0); Eosinophils # (auto) 0.4 10 ^3/uL (0-0.8); Eosinophils % (auto) 5.9 % (0.0-7.0); Hematocrit 35.8 % (41.0-53.0); Hemoglobin 11.7 g/dL (13.5-17.5); Lymphocytes # (auto) 1.7 10 ^3/uL (0.4-5.4); Lymphocytes % (auto) 25.6 % (10.0-50.0); Mean Corpuscular Hgb Conc. 32.5 g/dL (32.0-36.0); Mean Corpuscular Volume 82.9 fL (80.0-100.0); Monocytes # (auto) 0.9 10 ^3/uL (0-1.3); Monocytes % (auto) 13.3 % (0.0-12.0); Neutrophils # (auto) 3.7 10 ^3/uL (1.6-8.6); Neutrophils % (auto) 54.6 % (37.0-80.0); Nucleated Red Blood Cells % 0.2 %; Red Blood Cells 4.33 10^6/uL (4.5-5.90); Red Cell Distribution Width 16.1 % (11.8-14.3); White Blood Cell 6.7 10^3/uL (4.4-10.8)
[2021-05-26 07:06] LABS: Potassium 3.8 mmol/L (3.5-5.1)
[2021-05-26 07:13] LABS: Albumin 1.8 g/dL (3.4-5.0); BUN/Creatinine Ratio 20.2; Calcium 8.8 mg/dL (8.5-10.1)
[2021-05-26 07:15] LABS: Bilirubin, Total 0.2 mg/dL (0.2-1.0); Total Protein 6.6 g/dL (6.4-8.2)
[2021-05-26 09:00] VITALS: BP 148/81
[2021-05-26] MEDS: amLODIPine BESYLATE 5 MG TAB PO SCH (10:19)
[2021-05-26] MEDS: LISINOPRIL 10 MG TAB PO SCH (10:19)
[2021-05-26] MEDS: ASPirin-EC 81 mg tab PO SCH (10:19)
[2021-05-26] MEDS: CARVEDILOL 3.125 MG TAB PO SCH ×2 (10:20→21:41)
[2021-05-26] MEDS: DAKINS QUARTER STR 0.125% (NaHypochlorite) 473 ML TOPICAL SOL TOP SCH ×2 (10:29→21:42)
[2021-05-26] MEDS: glipiZIDE 5 MG TAB PO SCH ×2 (10:29→21:41)
[2021-05-26] MEDS ORDERED: ASPirin-EC 81 mg tab PO ONE (11:15)
[2021-05-26] MEDS ORDERED: CLOPIDOGREL BISULFATE 75 MG TAB PO ONE (11:15)
[2021-05-26] MEDS: ENOXAPARIN SOD 40 MG/0.4 ML SYRINGE SC SCH (12:21)
[2021-05-26 13:00] VITALS: BP 158/88
[2021-05-26] MEDS ORDERED: PROMETHAZINE HCL 25 MG/ML 1ML IV PRN (13:00)
[2021-05-26 17:03] VITALS: BP 140/71
[2021-05-26] MEDS: ATORVASTATIN 20 MG TAB PO SCH (21:41)
[2021-05-26] MEDS: QUEtiapine FUMARATE 25 MG TAB PO SCH (21:42)
[2021-05-26] MEDS: INSULIN LANTUS (GLARGINE) 1 /0.01ml (100units/ml) SC SCH (21:43)
[2021-05-26 22:05] VITALS: BP 143/68
[2021-05-27 04:49] VITALS: BP 143/91
[2021-05-27] MEDS: MEROPENEM 1GM IVPB 100 ML IV SCH ×3 (06:09→22:00)
[2021-05-27] MEDS: InsuLIN REG 1unit/0.01ml Soln (100units/ml) SC SCH ×4 (06:14→22:00)
[2021-05-27] MEDS: ACCU-CHEK COMFORT CURVE STRIP VI SCH ×4 (06:14→22:11)
[2021-05-27 09:00] VITALS: BP 144/76
[2021-05-27] MEDS: LISINOPRIL 10 MG TAB PO SCH (10:00)
[2021-05-27] MEDS: ENOXAPARIN SOD 40 MG/0.4 ML SYRINGE SC SCH (10:00)
[2021-05-27] MEDS: CLOPIDOGREL BISULFATE 75 MG TAB PO SCH (10:00)
[2021-05-27] MEDS: DAKINS QUARTER STR 0.125% (NaHypochlorite) 473 ML TOPICAL SOL TOP SCH ×2 (10:00→22:10)
[2021-05-27] MEDS: amLODIPine BESYLATE 5 MG TAB PO SCH (10:00)
[2021-05-27] MEDS: CARVEDILOL 3.125 MG TAB PO SCH ×2 (10:00→22:00)
[2021-05-27] MEDS: ASPirin-EC 81 mg tab PO SCH ×2 (10:00)
[2021-05-27] MEDS: glipiZIDE 5 MG TAB PO SCH ×2 (10:00→21:59)
[2021-05-27] MEDS ORDERED: MIDAZOLAM HCL 2MG/2ML 2ml VIAL (1mg/ml) IV ONE ×2 (12:15)
[2021-05-27] MEDS ORDERED: fentaNYL CITRATE 100 MCG/2 ML VL IV ONE (12:15)
[2021-05-27] MEDS ORDERED: diphenhdrAMINE HCL 50 MG/1 ML VL IV ONE (12:15)
[2021-05-27] MEDS ORDERED: LIDOCAINE VISCOUS 2% 15ML UD PO ONE (12:15)
[2021-05-27 17:00] VITALS: BP 148/93
[2021-05-27] MEDS: ATORVASTATIN 20 MG TAB PO SCH (22:00)
[2021-05-27] MEDS: QUEtiapine FUMARATE 25 MG TAB PO SCH (22:05)
[2021-05-27] MEDS: INSULIN LANTUS (GLARGINE) 1 /0.01ml (100units/ml) SC SCH (22:06)
[2021-05-28] MEDS: MEROPENEM 1GM IVPB 100 ML IV SCH ×2 (06:18→14:25)
[2021-05-28] MEDS: InsuLIN REG 1unit/0.01ml Soln (100units/ml) SC SCH ×2 (06:33→11:30)
[2021-05-28] MEDS: ACCU-CHEK COMFORT CURVE STRIP VI SCH ×2 (06:33→11:30)
[2021-05-28] MEDS: LISINOPRIL 10 MG TAB PO SCH (10:00)
[2021-05-28] MEDS: amLODIPine BESYLATE 5 MG TAB PO SCH (10:00)
[2021-05-28] MEDS: CLOPIDOGREL BISULFATE 75 MG TAB PO SCH (10:00)
[2021-05-28] MEDS: glipiZIDE 5 MG TAB PO SCH (10:00)
[2021-05-28] MEDS: CARVEDILOL 3.125 MG TAB PO SCH (10:00)
[2021-05-28] MEDS: DAKINS QUARTER STR 0.125% (NaHypochlorite) 473 ML TOPICAL SOL TOP SCH (10:00)
[2021-05-28] MEDS: ASPirin-EC 81 mg tab PO SCH ×2 (10:00)
[2021-05-28] MEDS: ENOXAPARIN SOD 40 MG/0.4 ML SYRINGE SC SCH (10:00)
[2021-05-28 10:32] LABS: INR 1.11 (0.9-1.15); Partial Thromboplastin Time 29.3 sec (23.6-33.0)
[2021-05-28] MEDS ORDERED: fentaNYL CITRATE 100 MCG/2 ML VL IV ONE (10:45)
[2021-05-28] MEDS ORDERED: MIDAZOLAM HCL 2MG/2ML 2ml VIAL (1mg/ml) IM ONE (10:45)
[2021-05-28] MEDS ORDERED: LIDOCAINE VISCOUS 2% 15ML UD ONE (11:03)
[2021-05-28] MEDS ORDERED: MIDAZOLAM HCL 2MG/2ML 2ml VIAL (1mg/ml) IV ONE (12:45)
[2021-05-28] MEDS ORDERED: diphenhdrAMINE HCL 50 MG/1 ML VL IV ONE (12:45)
== END 2021-05-28 16:10 | disposition left against medical advice (07) | DRG 720 ==
LOC: ER 13:41 → TELE 19:50 → TELE-CENTR 05-22 23:48
PROVIDERS: ADMIT Internal Medicine; ATTEND Internal Medicine
PROC: 05HA33Z Insertion of Infusion Device into Left Brachial Vein, Percutaneous Approach (ICD-10-PCS; 2021-05-24)
PROC: B54NZZA Ultrasonography of Left Upper Extremity Veins, Guidance (ICD-10-PCS; 2021-05-24)
PROC: B24BZZ4 Ultrasonography of Heart with Aorta, Transesophageal (ICD-10-PCS; principal; 2021-05-28)
DX: A41.50 Gram-negative sepsis, unspecified (principal); I63.9 Cerebral infarction, unspecified; I76 Septic arterial embolism; G93.41 Metabolic encephalopathy; F01.51 Vascular dementia, unspecified severity, with behavioral disturbance; N17.9 Acute kidney failure, unspecified; I25.3 Aneurysm of heart; E11.22 Type 2 diabetes mellitus with diabetic chronic kidney disease; E05.90 Thyrotoxicosis, unspecified without thyrotoxic crisis or storm; E11.42 Type 2 diabetes mellitus with diabetic polyneuropathy; E11.51 Type 2 diabetes mellitus with diabetic peripheral angiopathy without gangrene; E11.621 Type 2 diabetes mellitus with foot ulcer; F09 Unspecified mental disorder due to known physiological condition; Z20.822 Contact with and (suspected) exposure to COVID-19; E03.9 Hypothyroidism, unspecified; E78.00 Pure hypercholesterolemia, unspecified; E78.5 Hyperlipidemia, unspecified; F17.200 Nicotine dependence, unspecified, uncomplicated; G40.409 Other generalized epilepsy and epileptic syndromes, not intractable, without status epilepticus; I13.0 Hypertensive heart and chronic kidney disease with heart failure and stage 1 through stage 4 chronic kidney disease, or unspecified chronic kidney disease; M86.171 Other acute osteomyelitis, right ankle and foot; E11.69 Type 2 diabetes mellitus with other specified complication; E11.65 Type 2 diabetes mellitus with hyperglycemia; Z53.29 Procedure and treatment not carried out because of patient's decision for other reasons; L03.115 Cellulitis of right lower limb; N18.30 Chronic kidney disease, stage 3 unspecified; Z79.4 Long term (current) use of insulin; Z79.82 Long term (current) use of aspirin; Z79.899 Other long term (current) drug therapy; Z83.3 Family history of diabetes mellitus; Z86.711 Personal history of pulmonary embolism; Z89.511 Acquired absence of right leg below knee; Z91.19 Patient's noncompliance with other medical treatment and regimen; Z89.512 Acquired absence of left leg below knee; Z95.5 Presence of coronary angioplasty implant and graft
CPT/HCPCS: 36415; 70551; 71045; 73700; 80048; 80053; 80061; 80202; 81001; 82565; 82570; 82607; 82746; 82962; 83036; 83605; 83735; 84156; 84443; 85025; 85610; 85730; 86850; 86900; 86901; 87040; 87077; 87186; 87426; 93306; 93312; 93886; 93925; 95819; 96361; 96374; 96375; 99152; G0378; J1815; J2001; J2185; J2250; J2405; J2543; J3490

== ENCOUNTER 2021-05-28 22:04 | Inpatient (IN) | payer MEDICAID ==
[~2021-05-28] VITALS: Ht 200.7 cm; Wt 103.0 kg
[2021-05-28 22:37] LABS: Basophils # (auto) 0.1 10 ^3/uL (0-0.2); Basophils % (auto) 0.5 % (0.0-2.0); Eosinophils # (auto) 0.2 10 ^3/uL (0-0.8); Eosinophils % (auto) 1.5 % (0.0-7.0); Lymphocytes # (auto) 1.2 10 ^3/uL (0.4-5.4); Neutrophils # (auto) 8.7 10 ^3/uL (1.6-8.6)
[2021-05-28 22:38] LABS: Hematocrit 38.5 % (41.0-53.0); Hemoglobin 12.5 g/dL (13.5-17.5); Lymphocytes % (auto) 10.5 % (10.0-50.0); Mean Corpuscular Hemoglobin 26.8 pg (28.0-32.0); Mean Corpuscular Hgb Conc. 32.4 g/dL (32.0-36.0); Mean Corpuscular Volume 82.7 fL (80.0-100.0); Monocytes % (auto) 8.7 % (0.0-12.0); Neutrophils % (auto) 78.8 % (37.0-80.0); Nucleated Red Blood Cells % 0.1 %; Red Blood Cells 4.66 10^6/uL (4.5-5.90); Red Cell Distribution Width 16.2 % (11.8-14.3)
[2021-05-28 22:59] LABS: Albumin 2.5 g/dL (3.4-5.0); Calcium 9.5 mg/dL (8.5-10.1); Potassium 4.8 mmol/L (3.5-5.1)
[2021-05-28 23:08] LABS: BUN/Creatinine Ratio 21.8
[2021-05-28 23:09] LABS: Bilirubin, Total 0.4 mg/dL (0.2-1.0); Total Protein 7.6 g/dL (6.4-8.2)
[2021-05-29 03:14] LABS: INR 1.13 (0.9-1.15)
[2021-05-29] MEDS ORDERED: ACETAMINOPHEN 325 MG TAB PO PRN (03:45)
[2021-05-29] MEDS ORDERED: ONDANSETRON HCL 4 MG/2 ML VIAL IV PRN (03:45)
[2021-05-29] MEDS ORDERED: HYDROcodone-ACET 5/325MG TAB PO PRN (03:45)
[2021-05-29] MEDS ORDERED: VANCOMYCIN PER PHARMACY 0 MG IV SCH (03:45)
[2021-05-29] MEDS ORDERED: hydrALAZINE HCL 20 MG/ML VL IV PRN (03:45)
[2021-05-29] MEDS ORDERED: VANCOMYCIN 1GM/250ML 250 ML IV ONE ×2 (03:45→08:00)
[2021-05-29] MEDS ORDERED: cefTRIAXone 1GM/50ML D5W 50 ML IV SCH (04:00)
[2021-05-29] MEDS: InsuLIN REG 1unit/0.01ml Soln (100units/ml) SC SCH ×3 (07:15→19:50)
[2021-05-29] MEDS: ACCU-CHEK COMFORT CURVE STRIP VI SCH ×3 (07:15→19:50)
[2021-05-29 07:49] LABS: Basophils # (auto) 0.1 10 ^3/uL (0-0.2); Basophils % (auto) 0.7 % (0.0-2.0); Eosinophils # (auto) 0.2 10 ^3/uL (0-0.8); Eosinophils % (auto) 1.8 % (0.0-7.0); Hematocrit 36.3 % (41.0-53.0); Lymphocytes % (auto) 20.6 % (10.0-50.0); Mean Corpuscular Hemoglobin 27.6 pg (28.0-32.0); Mean Corpuscular Hgb Conc. 33.2 g/dL (32.0-36.0); Mean Corpuscular Volume 83.1 fL (80.0-100.0); Monocytes # (auto) 1.1 10 ^3/uL (0-1.3); Monocytes % (auto) 11.4 % (0.0-12.0); Neutrophils # (auto) 6.2 10 ^3/uL (1.6-8.6); Neutrophils % (auto) 65.5 % (37.0-80.0); Nucleated Red Blood Cells % 0.1 %; Red Blood Cells 4.36 10^6/uL (4.5-5.90); White Blood Cell 9.5 10^3/uL (4.4-10.8)
[2021-05-29 08:03] LABS: BUN/Creatinine Ratio 24.4; Calcium 9.3 mg/dL (8.5-10.1); Potassium 4.2 mmol/L (3.5-5.1)
[2021-05-29] MEDS: cefTRIAXone 1GM/50ML D5W 50 ML IV SCH (13:00)
[2021-05-29] MEDS: D5W/SOD CHLO 0.9% 1,000 ML IV SCH (14:45)
[2021-05-29 15:44] LABS: BUN/Creatinine Ratio 26.2; Calcium 9.2 mg/dL (8.5-10.1); Potassium 3.8 mmol/L (3.5-5.1)
[2021-05-29] MEDS ORDERED: ATORVASTATIN 20 MG TAB PO SCH (22:00)
[2021-05-30] MEDS: ACCU-CHEK COMFORT CURVE STRIP VI SCH ×4 (00:29→18:24)
[2021-05-30] MEDS: D5W/SOD CHLO 0.9% 1,000 ML IV SCH ×3 (00:59→18:43)
[2021-05-30] MEDS: InsuLIN REG 1unit/0.01ml Soln (100units/ml) SC SCH ×4 (05:52→18:00)
[2021-05-30] MEDS: cefTRIAXone 1GM/50ML D5W 50 ML IV SCH (09:00)
[2021-05-30] MEDS: ASPirin-EC 81 mg tab PO SCH (10:00)
[2021-05-30] MEDS ORDERED: ROPIVACAINE 0.5% (5MG/ML) 20ML AMPULE IJ ONE (12:47)
[2021-05-30] MEDS ORDERED: ceFAZolin 1GM VL ONE (12:47)
[2021-05-30] MEDS ORDERED: ceFAZolin 1GM/50ML 100 ML IV ONE (13:13)
[2021-05-30] MEDS ORDERED: fentaNYL CITRATE 100 MCG/2 ML VL ONE (13:31)
[2021-05-30] MEDS ORDERED: MIDAZOLAM HCL 2MG/2ML 2ml VIAL (1mg/ml) ONE (13:31)
[2021-05-30] MEDS: CARVEDILOL 3.125 MG TAB PO SCH ×2 (13:45→21:08)
[2021-05-30] MEDS: amLODIPine BESYLATE 5 MG TAB PO SCH (13:45)
[2021-05-30] MEDS ORDERED: MEROPENEM 1GM IVPB 100 ML IV ONE (14:00)
[2021-05-30] MEDS ORDERED: PROPOFOL 10 MG/ML 20 ML IV ONE (14:15)
[2021-05-30] MEDS ORDERED: HYDROmorphone HCL 2 MG/ML VL IV PRN (14:30)
[2021-05-30] MEDS ORDERED: ONDANSETRON HCL 4 MG/2 ML VIAL IV PRN (14:30)
[2021-05-30] MEDS: methIMAzole 5 MG TAB PO SCH (15:33)
[2021-05-30] MEDS: DULoxetine HCL 30 MG CAP PO SCH ×2 (15:46→21:08)
[2021-05-30 16:48] VITALS: BP 138/85
[2021-05-30 17:25] VITALS: BP 138/85
[2021-05-30] MEDS: MEROPENEM 1GM IVPB 100 ML IV SCH (21:07)
[2021-05-30] MEDS: ATORVASTATIN 20 MG TAB PO SCH (21:08)
[2021-05-30 22:00] VITALS: BP 150/94
[2021-05-31 05:00] VITALS: BP 135/73
[2021-05-31] MEDS: MEROPENEM 1GM IVPB 100 ML IV SCH ×3 (05:39→23:25)
[2021-05-31] MEDS: ACCU-CHEK COMFORT CURVE STRIP VI SCH ×5 (05:40→23:26)
[2021-05-31] MEDS: InsuLIN REG 1unit/0.01ml Soln (100units/ml) SC SCH ×5 (05:42→23:27)
[2021-05-31 06:38] LABS: Calcium 8.8 mg/dL (8.5-10.1); Potassium 4.2 mmol/L (3.5-5.1)
[2021-05-31] MEDS: D5W/SOD CHLO 0.9% 1,000 ML IV SCH ×2 (06:45→16:45)
[2021-05-31 06:55] LABS: Basophils # (auto) 0.1 10 ^3/uL (0-0.2); Basophils % (auto) 0.5 % (0.0-2.0); Eosinophils # (auto) 0.5 10 ^3/uL (0-0.8); Eosinophils % (auto) 5.4 % (0.0-7.0); Hematocrit 34.1 % (41.0-53.0); Hemoglobin 11.3 g/dL (13.5-17.5); Lymphocytes # (auto) 2.1 10 ^3/uL (0.4-5.4); Mean Corpuscular Hemoglobin 27.5 pg (28.0-32.0); Mean Corpuscular Hgb Conc. 33.1 g/dL (32.0-36.0); Monocytes % (auto) 9.7 % (0.0-12.0); Neutrophils # (auto) 6.3 10 ^3/uL (1.6-8.6); Neutrophils % (auto) 63.4 % (37.0-80.0); Nucleated Red Blood Cells % 0.2 %; Red Blood Cells 4.11 10^6/uL (4.5-5.90); Red Cell Distribution Width 15.9 % (11.8-14.3)
[2021-05-31 07:44] LABS: BUN/Creatinine Ratio 27.2
[2021-05-31 08:00] VITALS: BP 150/94
[2021-05-31 09:00] VITALS: BP 151/85
[2021-05-31] MEDS: DULoxetine HCL 30 MG CAP PO SCH ×2 (09:07→23:26)
[2021-05-31] MEDS: CARVEDILOL 3.125 MG TAB PO SCH ×2 (09:07→23:26)
[2021-05-31] MEDS: amLODIPine BESYLATE 5 MG TAB PO SCH (09:14)
[2021-05-31] MEDS: methIMAzole 5 MG TAB PO SCH (09:14)
[2021-05-31] MEDS: ASPirin 81 mg TAB PO SCH (12:42)
[2021-05-31 13:00] VITALS: BP 148/87
[2021-05-31 17:00] VITALS: BP 113/63
[2021-05-31 22:03] VITALS: BP 153/83
[2021-05-31] MEDS: ATORVASTATIN 20 MG TAB PO SCH (23:26)
[2021-06-01] MEDS: D5W/SOD CHLO 0.9% 1,000 ML IV SCH ×3 (03:56→22:45)
[2021-06-01 05:31] VITALS: BP 140/93
[2021-06-01] MEDS: MEROPENEM 1GM IVPB 100 ML IV SCH ×3 (05:54→22:01)
[2021-06-01] MEDS: ACCU-CHEK COMFORT CURVE STRIP VI SCH ×4 (05:59→23:29)
[2021-06-01] MEDS: InsuLIN REG 1unit/0.01ml Soln (100units/ml) SC SCH ×4 (05:59→23:35)
[2021-06-01 07:16] LABS: Potassium 3.9 mmol/L (3.5-5.1)
[2021-06-01 07:17] LABS: Basophils # (auto) 0.1 10 ^3/uL (0-0.2); Basophils % (auto) 0.7 % (0.0-2.0); Eosinophils # (auto) 0.5 10 ^3/uL (0-0.8); Eosinophils % (auto) 5.7 % (0.0-7.0); Hematocrit 35.5 % (41.0-53.0); Hemoglobin 11.8 g/dL (13.5-17.5); Lymphocytes # (auto) 2.4 10 ^3/uL (0.4-5.4); Lymphocytes % (auto) 29.1 % (10.0-50.0); Mean Corpuscular Hemoglobin 27.6 pg (28.0-32.0); Mean Corpuscular Hgb Conc. 33.2 g/dL (32.0-36.0); Monocytes # (auto) 0.7 10 ^3/uL (0-1.3); Monocytes % (auto) 9.2 % (0.0-12.0); Neutrophils # (auto) 4.5 10 ^3/uL (1.6-8.6); Neutrophils % (auto) 55.3 % (37.0-80.0); Red Blood Cells 4.28 10^6/uL (4.5-5.90); White Blood Cell 8.1 10^3/uL (4.4-10.8)
[2021-06-01 07:18] LABS: BUN/Creatinine Ratio 23.8
[2021-06-01 08:00] VITALS: BP_SYST 134; BP_SYST 153; BP_DIAS 80; BP_DIAS 83
[2021-06-01] MEDS: ASPirin 81 mg TAB PO SCH (09:37)
[2021-06-01] MEDS: CARVEDILOL 3.125 MG TAB PO SCH ×2 (09:38→22:00)
[2021-06-01] MEDS: DULoxetine HCL 30 MG CAP PO SCH ×2 (09:38→22:00)
[2021-06-01] MEDS: amLODIPine BESYLATE 5 MG TAB PO SCH (09:39)
[2021-06-01] MEDS: methIMAzole 5 MG TAB PO SCH (09:39)
[2021-06-01 12:00] VITALS: BP 147/80
[2021-06-01 16:00] VITALS: BP 145/78
[2021-06-01] MEDS ORDERED: ERTAPENEM SOD INJ 1 GM in SODIUM CHL 0.9% 50 ML IV ONE (18:15)
[2021-06-01] MEDS: ATORVASTATIN 20 MG TAB PO SCH (21:59)
[2021-06-01 22:00] VITALS: BP 146/80
[2021-06-02 05:00] VITALS: BP 143/76
[2021-06-02] MEDS: MEROPENEM 1GM IVPB 100 ML IV SCH (05:43)
[2021-06-02] MEDS: InsuLIN REG 1unit/0.01ml Soln (100units/ml) SC SCH ×4 (06:00→23:35)
[2021-06-02] MEDS: ACCU-CHEK COMFORT CURVE STRIP VI SCH ×4 (06:20→23:31)
[2021-06-02 08:00] VITALS: BP_SYST 134; BP_SYST 138; BP_DIAS 69; BP_DIAS 79
[2021-06-02] MEDS ORDERED: ERTAPENEM SOD INJ 1 GM in SODIUM CHL 0.9% 50 ML IV ONE (08:30)
[2021-06-02] MEDS: D5W/SOD CHLO 0.9% 1,000 ML IV SCH ×2 (08:45→18:45)
[2021-06-02] MEDS: ASPirin 81 mg TAB PO SCH (09:04)
[2021-06-02] MEDS: DULoxetine HCL 30 MG CAP PO SCH ×2 (09:04→21:39)
[2021-06-02] MEDS: CARVEDILOL 3.125 MG TAB PO SCH ×2 (09:05→21:40)
[2021-06-02] MEDS: methIMAzole 5 MG TAB PO SCH (09:06)
[2021-06-02] MEDS: amLODIPine BESYLATE 5 MG TAB PO SCH (09:06)
[2021-06-02] MEDS ORDERED: ERTAPENEM SOD INJ 1 GM in SODIUM CHL 0.9% 50 ML IV SCH (10:00)
[2021-06-02] MEDS ORDERED: VANCOMYCIN PER PHARMACY 0 MG IV SCH (11:15)
[2021-06-02] MEDS ORDERED: VANCOMYCIN 1GM/250ML 250 ML IV ONE (11:15)
[2021-06-02 12:00] VITALS: BP 165/90
[2021-06-02 16:00] VITALS: BP 155/79
[2021-06-02] MEDS: VANCOMYCIN 1GM/250ML 250 ML IV SCH (21:38)
[2021-06-02] MEDS: ATORVASTATIN 20 MG TAB PO SCH (21:38)
[2021-06-02 22:05] VITALS: BP 161/87
[2021-06-03] MEDS: D5W/SOD CHLO 0.9% 1,000 ML IV SCH ×2 (04:54→14:45)
[2021-06-03 05:00] VITALS: BP 146/78
[2021-06-03 05:22] LABS: Basophils # (auto) 0.1 10 ^3/uL (0-0.2); Eosinophils # (auto) 0.5 10 ^3/uL (0-0.8); Neutrophils # (auto) 4.6 10 ^3/uL (1.6-8.6)
[2021-06-03 05:26] LABS: Basophils % (auto) 0.8 % (0.0-2.0); Eosinophils % (auto) 6.7 % (0.0-7.0); Hematocrit 35.9 % (41.0-53.0); Hemoglobin 11.8 g/dL (13.5-17.5); Lymphocytes # (auto) 2.2 10 ^3/uL (0.4-5.4); Lymphocytes % (auto) 27.5 % (10.0-50.0); Mean Corpuscular Hgb Conc. 32.7 g/dL (32.0-36.0); Mean Corpuscular Volume 82.5 fL (80.0-100.0); Monocytes # (auto) 0.7 10 ^3/uL (0-1.3); Nucleated Red Blood Cells % 0.1 %; Red Blood Cells 4.35 10^6/uL (4.5-5.90); Red Cell Distribution Width 15.3 % (11.8-14.3); White Blood Cell 8.1 10^3/uL (4.4-10.8)
[2021-06-03] MEDS: InsuLIN REG 1unit/0.01ml Soln (100units/ml) SC SCH ×4 (05:41→23:59)
[2021-06-03] MEDS: ACCU-CHEK COMFORT CURVE STRIP VI SCH ×4 (05:41→23:55)
[2021-06-03] MEDS: MEROPENEM 1GM IVPB 100 ML IV SCH ×3 (06:22→23:20)
[2021-06-03 09:00] VITALS: BP 141/95
[2021-06-03] MEDS: methIMAzole 5 MG TAB PO SCH (09:16)
[2021-06-03] MEDS: DULoxetine HCL 30 MG CAP PO SCH ×2 (09:16→22:01)
[2021-06-03] MEDS: ASPirin 81 mg TAB PO SCH (09:16)
[2021-06-03] MEDS: amLODIPine BESYLATE 5 MG TAB PO SCH (09:17)
[2021-06-03] MEDS: CARVEDILOL 3.125 MG TAB PO SCH ×2 (09:17→22:00)
[2021-06-03] MEDS: VANCOMYCIN 1GM/250ML 250 ML IV SCH ×2 (11:24→21:12)
[2021-06-03 13:00] VITALS: BP 135/82
[2021-06-03 17:03] VITALS: BP 146/76
[2021-06-03 22:00] VITALS: BP 135/75
[2021-06-03] MEDS: ATORVASTATIN 20 MG TAB PO SCH (22:01)
[2021-06-04] MEDS: D5W/SOD CHLO 0.9% 1,000 ML IV SCH ×3 (00:45→20:53)
[2021-06-04] MEDS: VANCOMYCIN 1GM/250ML 250 ML IV SCH ×3 (04:52→20:53)
[2021-06-04 05:00] VITALS: BP 151/72
[2021-06-04] MEDS: ACCU-CHEK COMFORT CURVE STRIP VI SCH ×3 (05:46→18:00)
[2021-06-04] MEDS: InsuLIN REG 1unit/0.01ml Soln (100units/ml) SC SCH ×3 (05:52→18:10)
[2021-06-04 06:01] LABS: Basophils # (auto) 0.1 10 ^3/uL (0-0.2); Basophils % (auto) 0.8 % (0.0-2.0); Eosinophils # (auto) 0.5 10 ^3/uL (0-0.8); Eosinophils % (auto) 5.6 % (0.0-7.0); Hematocrit 35.3 % (41.0-53.0); Hemoglobin 11.5 g/dL (13.5-17.5); Lymphocytes # (auto) 2.7 10 ^3/uL (0.4-5.4); Lymphocytes % (auto) 32.1 % (10.0-50.0); Mean Corpuscular Hemoglobin 27.1 pg (28.0-32.0); Mean Corpuscular Hgb Conc. 32.6 g/dL (32.0-36.0); Mean Corpuscular Volume 83.3 fL (80.0-100.0); Monocytes # (auto) 0.8 10 ^3/uL (0-1.3); Monocytes % (auto) 9.4 % (0.0-12.0); Neutrophils # (auto) 4.5 10 ^3/uL (1.6-8.6); Neutrophils % (auto) 52.1 % (37.0-80.0); Nucleated Red Blood Cells % 0.1 %; Red Blood Cells 4.24 10^6/uL (4.5-5.90); Red Cell Distribution Width 15.4 % (11.8-14.3); White Blood Cell 8.5 10^3/uL (4.4-10.8)
[2021-06-04 06:15] LABS: BUN/Creatinine Ratio 22.6; Calcium 8.8 mg/dL (8.5-10.1); Potassium 4.2 mmol/L (3.5-5.1)
[2021-06-04 09:00] VITALS: BP 127/79
[2021-06-04] MEDS: ASPirin 81 mg TAB PO SCH (10:00)
[2021-06-04] MEDS: DULoxetine HCL 30 MG CAP PO SCH ×2 (10:00→21:54)
[2021-06-04] MEDS: methIMAzole 5 MG TAB PO SCH (10:00)
[2021-06-04] MEDS: amLODIPine BESYLATE 5 MG TAB PO SCH (10:00)
[2021-06-04] MEDS: CARVEDILOL 3.125 MG TAB PO SCH ×2 (10:00→21:53)
[2021-06-04] MEDS: MEROPENEM 1GM IVPB 100 ML IV SCH ×2 (10:30→16:00)
[2021-06-04 13:00] VITALS: BP 139/82
[2021-06-04 17:00] VITALS: BP 124/70
[2021-06-04] MEDS: ATORVASTATIN 20 MG TAB PO SCH (21:54)
[2021-06-04 22:00] VITALS: BP 136/81
[2021-06-05] MEDS: ACCU-CHEK COMFORT CURVE STRIP VI SCH ×4 (01:02→18:00)
[2021-06-05] MEDS: MEROPENEM 1GM IVPB 100 ML IV SCH ×3 (01:02→18:47)
[2021-06-05] MEDS: InsuLIN REG 1unit/0.01ml Soln (100units/ml) SC SCH ×4 (05:49→18:00)
[2021-06-05] MEDS: VANCOMYCIN 1GM/250ML 250 ML IV SCH ×2 (05:49→13:00)
[2021-06-05 05:52] LABS: BUN/Creatinine Ratio 23.2; Potassium 4.3 mmol/L (3.5-5.1)
[2021-06-05] MEDS: D5W/SOD CHLO 0.9% 1,000 ML IV SCH ×2 (06:45→16:45)
[2021-06-05 06:55] VITALS: BP 130/75
[2021-06-05] MEDS: DULoxetine HCL 30 MG CAP PO SCH ×2 (09:26→22:23)
[2021-06-05] MEDS: amLODIPine BESYLATE 5 MG TAB PO SCH (09:27)
[2021-06-05] MEDS: ASPirin 81 mg TAB PO SCH (09:27)
[2021-06-05] MEDS: CARVEDILOL 3.125 MG TAB PO SCH ×2 (09:27→22:22)
[2021-06-05] MEDS: methIMAzole 5 MG TAB PO SCH (09:28)
[2021-06-05 09:34] VITALS: BP 106/68
[2021-06-05 13:00] VITALS: BP 138/78
[2021-06-05 16:57] VITALS: BP 130/76
[2021-06-05] MEDS ORDERED: TPN PER PHARMACY IV NR ×9 (20:00)
[2021-06-05 22:00] VITALS: BP 115/68
[2021-06-05] MEDS: ATORVASTATIN 20 MG TAB PO SCH (22:23)
[2021-06-06] MEDS: MEROPENEM 1GM IVPB 100 ML IV SCH ×4 (00:13→23:34)
[2021-06-06] MEDS: ACCU-CHEK COMFORT CURVE STRIP VI SCH ×5 (00:14→23:34)
[2021-06-06] MEDS: InsuLIN REG 1unit/0.01ml Soln (100units/ml) SC SCH ×5 (00:15→23:37)
[2021-06-06] MEDS: D5W/SOD CHLO 0.9% 1,000 ML IV SCH ×3 (03:05→22:45)
[2021-06-06 05:00] VITALS: BP 126/66
[2021-06-06] MEDS: amLODIPine BESYLATE 5 MG TAB PO SCH (08:12)
[2021-06-06] MEDS: DULoxetine HCL 30 MG CAP PO SCH ×2 (08:12→21:31)
[2021-06-06] MEDS: ASPirin 81 mg TAB PO SCH (08:12)
[2021-06-06] MEDS: methIMAzole 5 MG TAB PO SCH (08:12)
[2021-06-06] MEDS: CARVEDILOL 3.125 MG TAB PO SCH ×2 (08:13→22:07)
[2021-06-06 09:01] VITALS: BP 140/74
[2021-06-06 13:00] VITALS: BP 135/79
[2021-06-06 16:54] VITALS: BP 136/81
[2021-06-06] MEDS: ATORVASTATIN 20 MG TAB PO SCH (21:32)
[2021-06-06 22:00] VITALS: BP 142/88
[2021-06-07 05:00] VITALS: BP 144/84
[2021-06-07] MEDS: ACCU-CHEK COMFORT CURVE STRIP VI SCH ×4 (05:27→23:17)
[2021-06-07] MEDS: InsuLIN REG 1unit/0.01ml Soln (100units/ml) SC SCH ×4 (05:36→23:22)
[2021-06-07] MEDS: D5W/SOD CHLO 0.9% 1,000 ML IV SCH ×2 (07:07→18:45)
[2021-06-07 09:00] VITALS: BP 143/86
[2021-06-07] MEDS: MEROPENEM 1GM IVPB 100 ML IV SCH ×3 (09:30→23:22)
[2021-06-07] MEDS: CARVEDILOL 3.125 MG TAB PO SCH ×2 (09:31→21:28)
[2021-06-07] MEDS: DULoxetine HCL 30 MG CAP PO SCH ×2 (09:31→21:15)
[2021-06-07] MEDS: ASPirin 81 mg TAB PO SCH (09:31)
[2021-06-07] MEDS: methIMAzole 5 MG TAB PO SCH (09:32)
[2021-06-07] MEDS: amLODIPine BESYLATE 5 MG TAB PO SCH (09:32)
[2021-06-07] MEDS ORDERED: VANCOMYCIN 1GM/250ML 250 ML IV SCH (11:00)
[2021-06-07 13:00] VITALS: BP 138/83
[2021-06-07 13:39] LABS: INR 1.16 (0.9-1.15); Partial Thromboplastin Time 29.3 sec (23.6-33.0)
[2021-06-07 17:00] VITALS: BP_SYST 138; BP_SYST 147; BP_DIAS 80; BP_DIAS 83
[2021-06-07] MEDS: ATORVASTATIN 20 MG TAB PO SCH (21:15)
[2021-06-07 22:47] VITALS: BP 143/86
[2021-06-08] MEDS: D5W/SOD CHLO 0.9% 1,000 ML IV SCH (04:45)
[2021-06-08 05:20] VITALS: BP 131/83
[2021-06-08] MEDS: InsuLIN REG 1unit/0.01ml Soln (100units/ml) SC SCH (05:29)
[2021-06-08] MEDS: ACCU-CHEK COMFORT CURVE STRIP VI SCH (05:29)
[2021-06-08 09:00] VITALS: BP 142/71
== END 2021-06-08 12:00 | DRG 314 ==
LOC: ER 22:08 → TELE-CENTR 05-29 03:45 → TELE 05-29 06:02 → TELE-WESTW 05-30 17:42
PROVIDERS: ADMIT Nurse Practitioner Family; ATTEND Internal Medicine
PROC: 0QBN0ZZ Excision of Right Metatarsal, Open Approach (ICD-10-PCS; principal; 2021-05-30 13:32)
DX: T87.43 Infection of amputation stump, right lower extremity (principal); I25.3 Aneurysm of heart; I38 Endocarditis, valve unspecified; N17.9 Acute kidney failure, unspecified; E44.1 Mild protein-calorie malnutrition; I50.9 Heart failure, unspecified; I13.0 Hypertensive heart and chronic kidney disease with heart failure and stage 1 through stage 4 chronic kidney disease, or unspecified chronic kidney disease; L03.115 Cellulitis of right lower limb; M86.9 Osteomyelitis, unspecified; L97.519 Non-pressure chronic ulcer of other part of right foot with unspecified severity; E11.22 Type 2 diabetes mellitus with diabetic chronic kidney disease; E11.621 Type 2 diabetes mellitus with foot ulcer; E11.69 Type 2 diabetes mellitus with other specified complication; N18.30 Chronic kidney disease, stage 3 unspecified; E78.5 Hyperlipidemia, unspecified; E05.90 Thyrotoxicosis, unspecified without thyrotoxic crisis or storm; E11.51 Type 2 diabetes mellitus with diabetic peripheral angiopathy without gangrene; F01.50 Vascular dementia, unspecified severity, without behavioral disturbance, psychotic disturbance, mood disturbance, and anxiety; F17.200 Nicotine dependence, unspecified, uncomplicated; F32.9 Major depressive disorder, single episode, unspecified; J32.9 Chronic sinusitis, unspecified; Z20.822 Contact with and (suspected) exposure to COVID-19; F09 Unspecified mental disorder due to known physiological condition; Y83.5 Amputation of limb(s) as the cause of abnormal reaction of the patient, or of later complication, without mention of misadventure at the time of the procedure; Q21.1 Atrial septal defect; Z79.82 Long term (current) use of aspirin; Z79.899 Other long term (current) drug therapy; Z83.3 Family history of diabetes mellitus; Z86.711 Personal history of pulmonary embolism; Z86.73 Personal history of transient ischemic attack (TIA), and cerebral infarction without residual deficits; Z89.512 Acquired absence of left leg below knee; Z95.5 Presence of coronary angioplasty implant and graft; Z91.19 Patient's noncompliance with other medical treatment and regimen; Z68.25 Body mass index [BMI] 25.0-25.9, adult
CPT/HCPCS: 36415; 70450; 71045; 73630; 73718; 80048; 80053; 80202; 82565; 82962; 85025; 85610; 85652; 85730; 86141; 87040; 87070; 87075; 87077; 87186; 87205; 87426; 97110; 97163; 97530; G0378; J0690; J0696; J1335; J1815; J2185; J2250; J2704; J7042